=== PATIENT | female | born 1940 | race Caucasian/White ===

== ENCOUNTER → 2016-09-17 | Outpatient (REF) | payer MEDICARE ==
[~2016-09-17] MED LIST: ACET50TAOT PO; CALC500T19 PO; CORE6.25 PO; FERR325T PO; INSUDET SC; LISI10TA4 PO; LOVA20TA2 PO; METF1000 PO; PRED10TA PO; VITA10002 PO; VITMTA PO
[2016-09-17 11:10] LABS: PERCENT SATURATION 25.3 % (13.2-37.4)
[2016-09-17 11:11] LABS: REASON FOR REVIEW COMPREHENSIVE REVIEW
== END ==
LOC: M LAB REF 10:31
PROVIDERS: ATTEND Internal Medicine Medical Oncology
DX: D64.9 Anemia, unspecified (principal); D72.829 Elevated white blood cell count, unspecified

== ENCOUNTER → 2016-09-25 | Outpatient (REF) | payer MEDICARE | LOC: M LAB REF 13:15 | PROVIDERS: ATTEND Internal Medicine Medical Oncology | DX: D72.829 Elevated white blood cell count, unspecified (principal); D64.9 Anemia, unspecified; D47.3 Essential (hemorrhagic) thrombocythemia ==

== ENCOUNTER → 2016-12-10 | Outpatient (CLI) | payer MEDICARE ==
[~2016-12-10] MED LIST changes: +PRED5PAK PO
--- NOTE | 2016-12-10 15:56 | REPMRS ---
Patient History The patient states she has not had a clinical breast exam in over a year. Patient is postmenopausal. No known family history of cancer. Digital Woman Screen Mammo: December 10, 2016 - Exam #: [id number] Bilateral CC and MLO view(s) were taken. Technologist: Sandra Mcclain, Technologist Prior study comparison: December 08, 2015, digital woman screen mammo performed at [facility] to [facility]. November 29, 2014, digital woman screen mammo performed at [facility]. July 01, 2013, digital woman screen mammo performed at [facility] to [facility]. FINDINGS: There are scattered fibroglandular densities. There has been no change in the appearance of the mammogram from the prior studies. There is a mild amount of scattered fibroglandular density which is fairly symmetric. There is no interval development of dominant mass, architectural distortion, or clustered microcalcification suggestive of malignancy. ASSESSMENT: BI-RADS/ACR category 1 mammogram. Negative. Recommendation Routine screening mammogram in 1 year (for women over age 40). This mammogram was interpreted with the aid of an FDA-approved computer-aided dectection system. Electronically Signed By: Stef Morris MD 12/10/16 [id number]
== END ==
LOC: M WHC 12:39
PROVIDERS: ATTEND Family Medicine
DX: Z12.39 Encounter for other screening for malignant neoplasm of breast (principal)

== ENCOUNTER → 2016-12-14 | Outpatient (CLI) | payer MEDICARE ==
[~2016-12-14] VITALS: Ht 170.2 cm; Wt 67.1 kg
[~2016-12-14] MED LIST changes: +LIDOCAINE 2% INJ 100 MG/5 ML SDV (FOR ANES.) As Ordered ONE; +NS 1,000 ML IV SCH; +PROPOFOL 200 MG/20 ML VIAL As Ordered ONE
--- NOTE | 2016-12-14 09:23 | ROOR ---
Patient Name: Charlene Denise Procedure Date: 12/14/2016 9:00 AM Date of : 1940 Age: 76 Room: [facility] Gender: Female Note Status: Finalized Procedure: Colonoscopy Indications: High risk colon cancer surveillance: Personal history of colonic polyps, Last colonoscopy: May 2012 Providers: Steven BROOKS MD Referring MD: Candelario Franklin MD Requesting Provider: Medicines: Monitored Anesthesia Care Complications: No immediate complications. Procedure: Pre-Anesthesia Assessment: - The heart rate, respiratory rate, oxygen saturations, blood pressure, adequacy of pulmonary ventilation, and response to care were monitored throughout the procedure. The Colonoscope was introduced through the anus and advanced to the cecum, identified by appendiceal orifice and ileocecal valve. The colonoscopy was performed without difficulty. The patient tolerated the procedure well. The quality of the bowel preparation was good. Findings: The perianal and digital rectal examinations were normal. Four flat and sessile polyps were found in the sigmoid colon and ascending colon. The polyps were 4 to 6 mm in size. These polyps were removed with a piecemeal technique using a cold snare. Resection and retrieval were complete. A single medium-sized angioectasia without bleeding was found in the proximal ascending colon. Coagulation for tissue destruction using argon beam at 0.8 liters/minute and 20 rey was successful. A few medium-mouthed diverticula were found in the sigmoid colon. The exam was otherwise without abnormality on direct and retroflexion views. Impression: - Four 4 to 6 mm polyps in the sigmoid colon and in the ascending colon, removed piecemeal using a cold snare. Resected and retrieved. - A single non-bleeding colonic angioectasia. Treated with argon beam coagulation. - Mild diverticulosis in the sigmoid colon. - Internal hemorrhoids. - The examination was otherwise normal on direct and retroflexion views. Recommendation: - Repeat colonoscopy in 3 years for surveillance. Steven Brooks MD Steven BROOKS MD 12/14/2016 9:22:55 AM This report has been signed electronically. Number of Addenda: 0 Note Initiated On: 12/14/2016 9:00 AM Estimated Blood Loss: Estimated blood loss: none.
[2016-12-14 09:40] VITALS: BP 110/63
== END ==
LOC: M OPP 07:51
PROVIDERS: ATTEND Internal Medicine Gastroenterology
DX: Z12.11 Encounter for screening for malignant neoplasm of colon (principal); Z86.010 Personal history of colon polyps; D12.5 Benign neoplasm of sigmoid colon; D12.2 Benign neoplasm of ascending colon; K55.20 Angiodysplasia of colon without hemorrhage; K57.30 Diverticulosis of large intestine without perforation or abscess without bleeding; I10 Essential (primary) hypertension; E11.9 Type 2 diabetes mellitus without complications; E78.5 Hyperlipidemia, unspecified; D64.9 Anemia, unspecified; M35.3 Polymyalgia rheumatica; I49.9 Cardiac arrhythmia, unspecified; Z85.6 Personal history of leukemia; Z79.84 Long term (current) use of oral hypoglycemic drugs; Z79.899 Other long term (current) drug therapy; Z88.6 Allergy status to analgesic agent; Z88.0 Allergy status to penicillin

== ENCOUNTER → 2017-01-08 | Outpatient (REF) | payer MEDICARE ==
[~2017-01-08] MED LIST changes: -LIDOCAINE 2% INJ 100 MG/5 ML SDV (FOR ANES.) As Ordered ONE; -NS 1,000 ML IV SCH; -PROPOFOL 200 MG/20 ML VIAL As Ordered ONE
[2017-01-08 19:41] LABS: PERCENT SATURATION 33.8 % (13.2-37.4)
== END ==
LOC: M LAB REF 17:17
PROVIDERS: ATTEND Internal Medicine Medical Oncology
DX: C95.90 Leukemia, unspecified not having achieved remission (principal)

== ENCOUNTER → 2017-01-24 | Outpatient (REF) | payer MEDICARE | LOC: M LAB REF 16:19 | PROVIDERS: ATTEND Internal Medicine Medical Oncology | DX: D64.9 Anemia, unspecified (principal); D47.3 Essential (hemorrhagic) thrombocythemia; D72.829 Elevated white blood cell count, unspecified ==

== ENCOUNTER → 2017-02-14 | Outpatient (CLI) | payer MEDICARE ==
[~2017-02-14] MED LIST changes: +ACETAMINOPHEN TAB 650MG DOSE (2X325MG) As Ordered ONE; +ACETAMINOPHEN TAB 650MG DOSE (2X325MG) PO SCH; +diphenhydrAMINE 25 MG CAP As Ordered ONE; +diphenhydrAMINE 25 MG CAP PO SCH
== END | disposition home or self-care (01) ==
LOC: M INFU 11:38
PROVIDERS: ATTEND Internal Medicine Medical Oncology
DX: D64.9 Anemia, unspecified (principal); C91.Z0 Other lymphoid leukemia not having achieved remission; Z88.0 Allergy status to penicillin; Z88.8 Allergy status to other drugs, medicaments and biological substances; Z79.899 Other long term (current) drug therapy; Z79.4 Long term (current) use of insulin; Z79.84 Long term (current) use of oral hypoglycemic drugs; Z79.52 Long term (current) use of systemic steroids
CPT/HCPCS: 36430; 86850; 86920; P9016

== ENCOUNTER → 2017-04-05 | Outpatient (REF) | payer MEDICARE ==
[~2017-04-05] MED LIST changes: -ACETAMINOPHEN TAB 650MG DOSE (2X325MG) As Ordered ONE; -ACETAMINOPHEN TAB 650MG DOSE (2X325MG) PO SCH; +ATOR1TAB21 PO; +FERR1TAB8 PO; -FERR325T PO; -METF1000 PO; +METF10004 PO; +METH2.5TA PO; +PRED1TABL PO; +PRED5TA PO; +TYLE325T5 PO; -diphenhydrAMINE 25 MG CAP As Ordered ONE; -diphenhydrAMINE 25 MG CAP PO SCH
== END ==
LOC: M SFHCPLAZ 11:58
PROVIDERS: ATTEND Family Medicine
DX: D50.9 Iron deficiency anemia, unspecified (principal); E78.2 Mixed hyperlipidemia; M35.3 Polymyalgia rheumatica; E04.2 Nontoxic multinodular goiter; E11.9 Type 2 diabetes mellitus without complications; Z53.8 Procedure and treatment not carried out for other reasons

== ENCOUNTER → 2017-04-09 | Outpatient (CLI) | payer MEDICARE ==
--- NOTE | 2017-04-09 13:44 | REP ---
Thyroid ultrasound: Comparison is the most recent study dated see 2015. Right lobe: The right lobe is enlarged measuring 7.7 x 2.7 x 3.2 cm (previously 7.0 x 2.8 x 3.7 cm. There are three right lobe nodules as previously. There is a 0.6 cm cyst in the upper pole (previously 1.1 cm). There is a 0.7 cm nodule medially in the upper pole (previously 1.9 cm). There is a 3.8 cm nodule in the lower pole (previously 2.8 cm). Left lobe: The left lobe is enlarged measuring 5.7 x 1.9 by 1.8 cm (previous 6.0 x 1 point and 1.7 cm. There are three left lobe nodules as previously. There is an upper pole nodule measuring 1.4 cm (previously 1.1 cm). There is a lower pole nodule laterally measuring 1.0 cm (2.4 cm previously). There is a lower pole nodule medially measuring 0.80 cm (previously 1.9 cm). Isthmus: The isthmus is thickened measuring 3.8 mm (3.7 mm previously). There is a 0.3 cm cyst in the isthmus to the left of midline, not present previously. Signed by Yordan Pena MD 04/09/2017 01:37 P
== END ==
LOC: M RAD 11:58
PROVIDERS: ATTEND Family Medicine
DX: E04.2 Nontoxic multinodular goiter (principal)

== ENCOUNTER → 2017-04-09 | Outpatient (CLI) | payer MEDICARE ==
[2017-04-09 10:27] LABS: BASO % 0.4 % (0.0-1.0); EOS # 0.1 K/mm3 (0.0-0.50); EOS % 0.7 % (0.0-3.0); LARGE UNSTAINED CELL # 0.1 K/mm3 (0.0-0.4); LYMPH # 4.7 K/mm3 (1.5-4.5); LYMPH % 49.9 % (24.0-44.0); MEAN CORPUSCULAR HEMOGLOBIN 37.7 pg (27.0-33.0); MEAN CORPUSCULAR HGB CONC 33.9 g/dl (32.0-36.5); MONO # 0.6 K/mm3 (0.0-0.8); NEUTROPHILS # 3.9 K/mm3 (1.8-7.7); PLATELET COUNT, AUTOMATED 331 k/mm3 (150-450); RED CELL DISTRIBUTION WIDTH 18.8 % (11.5-14.5); WHITE BLOOD COUNT 9.3 K/mm3 (4.0-10.0)
[2017-04-09 10:32] LABS: BILIRUBIN,TOTAL 0.4 MG/DL (0.2-1.0); CALCIUM LEVEL 8.8 MG/DL (8.8-10.2); CREATININE FOR GFR 1.41 MG/DL (0.55-1.02); GLOMERULAR FILTRATION RATE 38.3 (>39)
[2017-04-09 10:33] LABS: ALBUMIN 3.4 GM/DL (3.2-5.2); ALBUMIN/GLOBULIN RATIO 1.36 (1.00-1.93); FREE T4 1.27 NG/DL (0.76-1.46); PERCENT SATURATION 30.9 % (13.2-45.0); TOTAL PROTEIN 5.9 GM/DL (6.4-8.2)
[2017-04-09 10:37] LABS: ADD MORPHOLOGY? YES
[2017-04-09 10:38] LABS: POTASSIUM SERUM 5.8 MEQ/L (3.5-5.1)
[2017-04-09 10:53] LABS: ERYTHROCYTE SEDIMENTATION RATE 65 mm/hr (0-30)
[2017-04-09 11:41] LABS: ANISOCYTOSIS 2+
== END ==
LOC: M WUC 08:10
PROVIDERS: ATTEND Family Medicine
DX: D50.9 Iron deficiency anemia, unspecified (principal); E78.2 Mixed hyperlipidemia; M35.3 Polymyalgia rheumatica; Z79.899 Other long term (current) drug therapy

== ENCOUNTER → 2017-04-22 | Outpatient (REF) | payer MEDICARE | LOC: M LAB REF 12:41 | PROVIDERS: ATTEND Internal Medicine Medical Oncology | DX: D64.9 Anemia, unspecified (principal) ==

== ENCOUNTER 2017-04-23 12:33 | Outpatient (CLI) | payer MEDICARE ==
[~2017-04-23] VITALS: Ht 170.2 cm; Wt 71.0 kg
[2017-04-23] VITALS (7 sets, daily range): BP systolic 105–133; BP diastolic 57–63
[~2017-04-23 12:33] MED LIST changes: +ACETAMINOPHEN TAB 650MG DOSE (2X325MG) PO SCH; -ATOR1TAB21 PO; -METH2.5TA PO; -PRED1TABL PO; -PRED5TA PO; -TYLE325T5 PO; +diphenhydrAMINE 25 MG CAP PO SCH
== END 2017-04-23 18:34 | disposition home or self-care (01) ==
LOC: M OPCLI4PR 12:33 → M PED 12:36 → M OPCLI4PR 18:34
PROVIDERS: ATTEND Internal Medicine Medical Oncology
DX: D64.9 Anemia, unspecified (principal); C91.Z0 Other lymphoid leukemia not having achieved remission; Z88.0 Allergy status to penicillin; Z88.8 Allergy status to other drugs, medicaments and biological substances
CPT/HCPCS: 36430; P9016

== ENCOUNTER 2017-05-21 12:18 | Outpatient (CLI) | payer MEDICARE ==
[~2017-05-21] VITALS: Ht 170.2 cm; Wt 66.3 kg
[~2017-05-21 12:18] MED LIST changes: -ATOR1TAB21 PO; -METH2.5TA PO; -PRED1TABL PO; -PRED5TA PO; -TYLE325T5 PO
[2017-05-21 12:50] VITALS: BP 91/44
[2017-05-21] MEDS ORDERED: ACETAMINOPHEN TAB 650MG DOSE (2X325MG) PO ONE (13:00)
[2017-05-21] MEDS ORDERED: diphenhydrAMINE 25 MG CAP PO ONE (13:00)
[2017-05-21] MEDS ORDERED: METH2.5TA PO (13:51)
== END 2017-05-21 17:55 | disposition home or self-care (01) ==
LOC: M OPCLI4PR 12:18 → M MS4PR 12:24 → M OPCLI4PR 17:55
PROVIDERS: ATTEND Internal Medicine Medical Oncology
DX: D64.9 Anemia, unspecified (principal); E78.9 Disorder of lipoprotein metabolism, unspecified
CPT/HCPCS: 86850; 86900; 86901; 86920; P9016

== ENCOUNTER → 2017-05-21 | Outpatient (REF) | payer MEDICARE ==
[~2017-05-21] MED LIST changes: -ACETAMINOPHEN TAB 650MG DOSE (2X325MG) PO SCH; +ATOR1TAB21 PO; +METH2.5TA PO; +PRED1TABL PO; +PRED5TA PO; +TYLE325T5 PO; -diphenhydrAMINE 25 MG CAP PO SCH
== END ==
LOC: M LAB REF 09:50
PROVIDERS: ATTEND Internal Medicine Medical Oncology
DX: D64.9 Anemia, unspecified (principal); E78.9 Disorder of lipoprotein metabolism, unspecified

== ENCOUNTER 2017-06-04 11:35 | Outpatient (CLI) | payer MEDICARE ==
[~2017-06-04] VITALS: Ht 170.2 cm; Wt 75.0 kg
[~2017-06-04 11:35] MED LIST changes: +ACETAMINOPHEN TAB 650MG DOSE (2X325MG) PO SCH; +METH2.5TA PO; +diphenhydrAMINE 25 MG CAP PO SCH
== END 2017-06-04 14:30 | disposition home or self-care (01) ==
LOC: M INFU 11:35
PROVIDERS: ATTEND Internal Medicine Medical Oncology
DX: D64.9 Anemia, unspecified (principal); C95.90 Leukemia, unspecified not having achieved remission; Z87.891 Personal history of nicotine dependence; Z88.8 Allergy status to other drugs, medicaments and biological substances; Z88.0 Allergy status to penicillin; Z79.52 Long term (current) use of systemic steroids; Z79.4 Long term (current) use of insulin; Z79.899 Other long term (current) drug therapy
CPT/HCPCS: 36430; 86850; 86900; 86901; 86920; P9016

== ENCOUNTER → 2017-06-19 | Outpatient (CLI) | payer MEDICARE ==
[~2017-06-19] MED LIST changes: +ATOR1TAB21 PO; +PRED1TABL PO; +PRED5TA PO; +TYLE325T5 PO
== END ==
LOC: M INFU 12:05
PROVIDERS: ATTEND Internal Medicine Medical Oncology
DX: D64.9 Anemia, unspecified (principal); C95.90 Leukemia, unspecified not having achieved remission; Z88.8 Allergy status to other drugs, medicaments and biological substances; Z88.0 Allergy status to penicillin; Z79.4 Long term (current) use of insulin; Z79.899 Other long term (current) drug therapy; Z79.52 Long term (current) use of systemic steroids; Z87.891 Personal history of nicotine dependence
CPT/HCPCS: 36430; 86850; 86900; 86901; 86920; P9016

== ENCOUNTER 2017-07-17 08:35 | Observation (INO) | payer MEDICARE ==
[~2017-07-17] VITALS: Ht 167.6 cm; Wt 69.6 kg
[2017-07-17] VITALS (8 sets, daily range): BP systolic 123–148; BP diastolic 58–67
[~2017-07-17 08:35] MED LIST changes: -ACETAMINOPHEN TAB 650MG DOSE (2X325MG) PO SCH; -ATOR1TAB21 PO; -PRED1TABL PO; -PRED5TA PO; -TYLE325T5 PO; -diphenhydrAMINE 25 MG CAP PO SCH
[2017-07-17] MEDS ORDERED: ALBUTEROL SULFATE 2.5 MG/0.5 ML INH NEB SOLN INH ONE (09:30)
[2017-07-17 09:36] LABS: BASO % 0.2 % (0.0-1.0); EOS # 0.5 10^3/uL (0.0-0.50); EOS % 3.6 % (0.0-3.0); IMMATURE GRANULOCYTE % 0.6 % (0-0); LYMPH # 4.2 10^3/uL (1.5-4.5); LYMPH % 33.1 % (24.0-44.0); MEAN CORPUSCULAR HEMOGLOBIN 32.7 pg (27.0-33.0); MEAN CORPUSCULAR HGB CONC 33.5 g/dl (32.0-36.5); MEAN CORPUSCULAR VOLUME 97.7 fl (80.0-96.0); MONO # 1.3 10^3/uL (0.0-0.8); MONO % 10.1 % (0.0-5.0); NEUTROPHILS # 6.7 10^3/uL (1.8-7.7); NEUTROPHILS % 52.4 % (36.0-66.0); PLATELET COUNT, AUTOMATED 321 10^3/uL (150-450); RED CELL DISTRIBUTION WIDTH 16.7 % (11.5-14.5); WHITE BLOOD COUNT 12.7 10^3/uL (4.0-10.0)
--- NOTE | 2017-07-17 10:07 | REP ---
PA and lateral chest: Comparison is 01/04/2016. The lung ny are clear. Cardiac size is normal. The alejo, mediastinum, and bony thorax are unremarkable except for an old healed right seventh rib fracture, not present previously. There is chronic grade 1 compression deformity of the T11 vertebral body, unchanged from the prior study. Impression: No acute cardiopulmonary findings. Signed by Yordan Pena MD 07/17/2017 09:58 A
[2017-07-17 10:19] LABS: BLOOD UREA NITROGEN 39 MG/DL (7-18); CALCIUM LEVEL 9.3 MG/DL (8.8-10.2); CARBON DIOXIDE LEVEL 25 MEQ/L (21-32); CHLORIDE LEVEL 106 MEQ/L (98-107); GLUCOSE, FASTING 113 MG/DL (83-110); POTASSIUM SERUM 4.8 MEQ/L (3.5-5.1)
[2017-07-17 10:25] LABS: ANION GAP 9 MEQ/L (8-16); SODIUM LEVEL 140 MEQ/L (136-145)
[2017-07-17] MEDS ORDERED: TYLE325T5 PO (10:42)
[2017-07-17] MEDS ORDERED: ATOR1TAB21 PO (10:42)
[2017-07-17] MEDS ORDERED: PRED1TABL PO (10:43)
[2017-07-17] MEDS ORDERED: PRED5TA PO (10:43)
[2017-07-17] MEDS ORDERED: DEXTROSE 50% 50 ML SYRINGE IV PRN (12:45)
[2017-07-17] MEDS ORDERED: ACETAMINOPHEN TAB 650MG DOSE (2X325MG) PO PRN (12:45)
[2017-07-17] MEDS ORDERED: GLUCOSE 4 GM CHEW TABLET PO PRN (12:45)
[2017-07-17] MEDS ORDERED: GLUCAGON FOR INJ 1 MG VIAL (J1610) SC PRN (12:45)
[2017-07-17] MEDS: HumaLOG INSULIN (NovoLOG) PER UNIT SC SCH (17:15)
[2017-07-17] MEDS ORDERED: SLF 3 ML SYR IV PRN (18:15)
[2017-07-17] MEDS: SLF 3 ML SYR IV SCH (20:44)
[2017-07-17] MEDS ORDERED: HumaLOG INSULIN (NovoLOG) PER UNIT SC SCH (21:00)
[2017-07-17] MEDS ORDERED: predniSONE 1 MG TAB PO SCH (21:00)
[2017-07-17] MEDS ORDERED: ATORVASTATIN 20 MG TAB PO SCH (21:00)
[2017-07-17] MEDS ORDERED: predniSONE 5 MG TAB PO SCH (21:00)
--- NOTE | 2017-07-18 02:40 | HPEPDOC ---
General Date of Admission Jul 17, 2017 at 12:42 Attending Physician: VEL BRYANT DO Chief Complaint The patient is a 77-year-old female admitted with a reason for visit of Symptomatic Anemia. Source: Patient, Family, Old records Exam Limitations: No limitations Timing/Duration: Week(s) Severity: Moderate History of Present Illness This is a 68 [address] patient of Dr. Garrett, who presents to the ED after she was found to be hypotensive in the oncology office. Reportedly, she had a pressure that was 80 systolic there, and was sent to the ED for further workup and evaluation. She has been receiving blood transfusions every several weeks since this summer. Her hemoglobin was just high enough at her [id number] scheduled transfusion that she was not transfused that day. She then stayed home from her next scheduled transfusion, as she felt too tired to face going. She has been feeling quite tired and run down for at least the last 2 weeks, worse in the last several mornings. Home Medications Scheduled Atorvastatin Calcium (Atorvastatin Calcium) 20 Mg Tab, 20 MG PO QPM, (Reported) Calcium/Vitamin D (Calcium 500/D 500-200 mg-Unit) 1 Tab Tab, 1 TAB PO DAILY, ( Reported) Carvedilol (Coreg) 6.25 Mg Tab, 6.25 MG PO BID, (Reported) Cyanocobalamin (Vitamin B-12) 1,000 Mcg Tab, 1,000 MCG PO 3XW, (Reported) SATURDAY, SATURDAY, SATURDAY Insulin Detemir (Levemir) 1 Units/0.01 Ml Susp, 20 UNITS SC QAM, (Reported) Insulin Detemir (Levemir) 1 Units/0.01 Ml Susp, 10 UNITS SC QPM, (Reported) Lisinopril (Lisinopril) 10 Mg Tab, 10 MG PO DAILY, (Reported) Metformin Hydrochloride (Metformin HCl) 1,000 Mg Tab, 1,000 MG PO BID, (Reported ) Methotrexate (Methotrexate) 2.5 Mg Tab, 15 MG PO 1XWK, (Reported) SATURDAY Multivitamins *[facility] STOCKED* (Thera M Plus *[facility] STOCKED*) 1 Tab Tab, 1 TAB PO DAILY, (Reported) Prednisone (Prednisone) 5 Mg Tab, 5 MG PO QPM, (Reported) TAKE WITH 1MG TAB- 6MG TOTAL Prednisone (Prednisone) 1 Mg Tab, 1 MG PO QPM, (Reported) TAKE WITH 5MG TAB- 6MG TOTAL Scheduled PRN Acetaminophen (Tylenol) 325 Mg Tab, 650 MG PO Q4H PRN for PAIN, (Reported) Allergies Coded Allergies: Aspirin (Unverified Allergy, Intermediate, HIVES, 12/07/16) Penicillins (Unverified Allergy, Intermediate, RASH, 12/07/16) Penicillins Cross Reactors (Unverified Allergy, Intermediate, RASH, ) Past Medical History Medical History T-cell Large Granulocytic Leukemia (T-LGL) Diabetes Mellitus type 2 anemia (deficiency of iron, B12, as well as CKD) hyperlipidemia psoriasis CKD stage 3 Surgical History bilateral tubal ligation MEG-BSO cataracts L inguinal hernia repair Social History * Smoker: non-smoker Alcohol: Denies Drugs: denies Psychosocial History: Other (cares for with dementia) Review of Symptoms Constitutional: Reports: Malaise, Weakness, Denies: Chills, Fever Eyes: Denies: Vision change ENT: Reports: Head Aches Skin: Denies: Rash, Lesions Pulmonary: Reports: Cough (dry), Denies: Dyspnea Cardiovascular: Reports: Chest Pain Gastrointestinal: Denies: Nausea, Vomiting, Diarrhea, Constipation Genitourinary: Denies: Dysuria Endocrine: Denies: Polydipsia, Polyphagia Physical Examination General Exam: Positive: Alert, Cooperative, No Acute Distress Eye Exam: Positive: PERRLA, Conjunctiva & lids normal, EOMI Neck Exam: Positive: Supple Vital Signs Vital Signs Date Time Temp Pulse Resp B/P (MAP) Pulse Ox O2 Delivery O2 Flow Rate FiO2 07/17/17 23:55 Room Air 07/17/17 23:19 97.7 91 18 125/61 (82) 95 Laboratory Data Labs 24H Laboratory Tests 2 07/17/17 09:11: Immature Granulocyte % (Auto) 0.6H, White Blood Count 12.7H, Red Blood Count 2.14L, Hemoglobin 7.0L, Hematocrit 20.9L, Mean Corpuscular Volume 97.7H, Mean Corpuscular Hemoglobin 32.7, Mean Corpuscular Hemoglobin Concent 33.5, Red Cell Distribution Width 16.7H, Platelet Count 321, Neutrophils (%) (Auto) 52.4, Lymphocytes (%) (Auto) 33.1, Monocytes (%) (Auto) 10.1H, Eosinophils (%) (Auto) 3.6H, Basophils (%) (Auto) 0.2, Neutrophils # (Auto) 6.7, Lymphocytes # (Auto) 4.2, Monocytes # (Auto) 1.3H, Eosinophils # (Auto) 0.5, Basophils # (Auto) 0.0, Immature Granulocyte # (Auto) 0.1H, Nucleated Red Blood Cells % (auto) 0.0, Anion Gap 9, Lactic Acid Level 2.1*H, Blood Urea Nitrogen 39H, Creatinine 1.50H , Sodium Level 140, Potassium Level 4.8, Chloride Level 106, Carbon Dioxide Level 25, Calcium Level 9.3, Total Creatine Kinase 57, Creatine Kinase MB 1.0, Creatine Kinase MB Relative Index 1.75, Troponin I < 0.02, AG-Hly-R-Type Natriuretic Peptide 391 07/17/17 13:11: Total Creatine Kinase 54, Creatine Kinase MB 1.1, Creatine Kinase MB Relative Index 2.03, Troponin I < 0.02 07/17/17 19:50: Lactic Acid Followup at 4 Hours 0.7 CBC/BMP Laboratory Tests 07/17/17 09:11 Red Blood Count 2.14 L, Mean Corpuscular Volume 97.7 H, Mean Corpuscular Hemoglobin 32.7, Mean Corpuscular Hemoglobin Concent 33.5, Red Cell Distribution Width 16.7 H, Neutrophils (%) (Auto) 52.4, Lymphocytes (%) (Auto) 33.1, Monocytes (%) (Auto) 10.1 H, Eosinophils (%) (Auto) 3.6 H, Basophils (%) ( Auto) 0.2, Neutrophils # (Auto) 6.7, Lymphocytes # (Auto) 4.2, Monocytes # (Auto ) 1.3 H, Eosinophils # (Auto) 0.5, Basophils # (Auto) 0.0, Calcium Level 9.3, Total Creatine Kinase 57 07/17/17 19:50 Microbiology Microbiology 07/17/17 Blood Culture, Received Pending 07/17/17 Blood Culture, Received Pending Assessment/Plan 1. Patient with symptomatic anemia. Will transfuse 3 units, and monitor response to blood products. Discussed not skipping scheduled transfusions because of fatigue and malaise. Recheck hemoglobin after transfusion. 2. Essential hypertension -- hypotensive now, without evidence of significant illness. Will hold antihypertensives, and evaluation after transfusion 3. DM type 2 -- she has been running hypoglycemic at home. Worsening appetite. Home medications held, and patient placed on sliding scale insulin. 4. T-LGL -- patient has been following up with Dr. Mora 5. PFS -- patient has been having more difficulty caring for her spouse at home. He has dementia. They receive no support. The last couple weeks she has been too tired too cook, and has a bad appetite anyway. PFS consulted. Plan / VTE VTE Prophylaxis Ordered?: Yes Plan Activity: Continue Current Therapy: Home Safety VEL Morocho DO Jul 18, 2017 02:40
[2017-07-18 04:00] VITALS: BP 123/60
[2017-07-18] MEDS: SLF 3 ML SYR IV SCH (05:08)
[2017-07-18 06:07] LABS: BASO % 0.5 % (0.0-1.0); EOS # 0.1 10^3/uL (0.0-0.50); IMMATURE GRANULOCYTE % 0.6 % (0-0); LYMPH # 3.7 10^3/uL (1.5-4.5); LYMPH % 42.2 % (24.0-44.0); MEAN CORPUSCULAR HEMOGLOBIN 31.6 pg (27.0-33.0); MEAN CORPUSCULAR HGB CONC 34.5 g/dl (32.0-36.5); MEAN CORPUSCULAR VOLUME 91.7 fl (80.0-96.0); MONO # 0.7 10^3/uL (0.0-0.8); MONO % 7.6 % (0.0-5.0); NEUTROPHILS # 4.2 10^3/uL (1.8-7.7); NEUTROPHILS % 48.1 % (36.0-66.0); PLATELET COUNT, AUTOMATED 270 10^3/uL (150-450); RED CELL DISTRIBUTION WIDTH 15.9 % (11.5-14.5); WHITE BLOOD COUNT 8.7 10^3/uL (4.0-10.0)
[2017-07-18 06:33] LABS: ALBUMIN 2.6 GM/DL (3.2-5.2); ALBUMIN/GLOBULIN RATIO 0.84 (1.00-1.93); BILIRUBIN,TOTAL 0.7 MG/DL (0.2-1.0); CALCIUM LEVEL 8.6 MG/DL (8.8-10.2); CREATININE FOR GFR 1.28 MG/DL (0.55-1.02); GLOMERULAR FILTRATION RATE 42.8 (>39); TOTAL PROTEIN 5.7 GM/DL (6.4-8.2)
[2017-07-18 06:49] LABS: POTASSIUM SERUM 5.2 MEQ/L (3.5-5.1)
--- NOTE | 2017-07-18 07:22 | ECGEPIP ---
Stationary ECG Study [facility] - ED Test Date: 2017-07-17 Pat Name: LELE SELF Department: Room: [place] [address] Gender: F Remedial [place]se[place]: LYNETTE : 1940 Requested By: Virgilio Fischer Order Number: [id number] Reading MD: Virgilio Hernadez Measurements Intervals [place] Rate: 94 P: 42 OK: 120 QRS: 42 QRSD: 88 T: 43 QT: 321 QTc: 401 Interpretive Statements SINUS RHYTHM NSTTW ABNORMALITIES SIMILAR TO 01/04/16 Electronically Signed On 07-18-2017 7:21:47 EST by Virgilio Hernadez
[2017-07-18 08:00] VITALS: BP 135/71
[2017-07-18] MEDS: HumaLOG INSULIN (NovoLOG) PER UNIT SC SCH ×2 (08:17→11:49)
[2017-07-18] MEDS ORDERED: MULTIVITAMINS/MINERALS THERAP 1 TAB PO SCH (09:00)
[2017-07-18 10:58] LABS: CALCIUM LEVEL 8.8 MG/DL (8.8-10.2); CREATININE FOR GFR 1.48 MG/DL (0.55-1.02); GLOMERULAR FILTRATION RATE 36.2 (>39); POTASSIUM SERUM 4.3 MEQ/L (3.5-5.1)
--- NOTE | 2017-07-19 05:20 | DSES ---
DATE OF ADMISSION: 07/17/2017 DATE OF DISCHARGE: 07/18/2017 ATTENDING PHYSICIAN: Dr. Vaishnavi Krueger. PRIMARY CARE PHYSICIAN: Dr. Candelario Franklin. HISTORY OF PRESENT ILLNESS: A 77-year-old patient presented to the emergency department (ED) after she was found to be hypotensive in the oncology office. She had a reported pressure of 80 systolic. The patient had been receiving blood transfusion every several weeks since this summer. However, the patient was not transfused the last two scheduled transfusions; one secondary to a stable level, the other secondary to patient not feeling well enough to attend the transfusion. Workup in the ED proved positive for symptomatic anemia. The patient was transfused with three units packed red cells. The patient was encouraged not to skip scheduled transfusion secondary to fatigue and malaise. Labs this morning show a hemoglobin of 9.1 with a hematocrit of 26.4. Chemistries show a potassium of 5.2 and that will be repeated prior to patient's discharge. The patient's blood pressure did normalize after transfusion. The patient feels well today and is anticipating going home. PHYSICAL EXAMINATION: VITAL SIGNS: Blood pressure is in the 120-130 range over 60s, heart rate is stable in the 90 range. HEENT: Neck is supple without lymphadenopathy or jugular venous distention (JVD). CARDIOVASCULAR: Heart rate and rhythm regular. PULMONARY: Lungs are clear. ABDOMEN: Soft and nontender. EXTREMITIES: Bilateral lower extremities without any edema. NEUROLOGIC: There is no resting tremor appreciated. The patient is alert and oriented times three. 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 SECONDARY DIAGNOSES: 1. Diabetes. 2. Hyperlipidemia. 3. Psoriasis. 4. Chronic kidney disease stage III. 5. Hypertension. PLAN: The patient will be discharged home. Diet is carbohydrate consistent. Activities as tolerated. She will followup with her primary care provider (PCP) on 07/23. She will followup with her oncologist on 07/24. She will have a complete blood count (CBC) completed on 07/22. Medications are as follows: - acetaminophen 325 mg tablet two by mouth every four hours as needed for pain - atorvastatin calcium 20 mg by mouth every evening - calcium and vitamin D one tablet by mouth daily - Coreg 6.25 mg by mouth twice a day - vitamin B12 1000 mcg by mouth three times per week - Levemir 20 units subcutaneous every morning and 10 units subcutaneous every evening - metformin 1000 mg by mouth twice a day - methotrexate 2.5 mg tablet (please clarify) by mouth weekly - multivitamin one tablet daily - prednisone 5 mg tablet by mouth every evening along with a 1 mg tablet by mouth every evening Stopped medications include lisinopril secondary to her hypotension. This can be reevaluated at her PCP's office next week during followup. The patient is discharged in stable and satisfactory condition with no further questions at time of discharge.
== END 2017-07-18 14:00 | disposition home or self-care (01) ==
LOC: M ED 08:35 → M ED INP 12:42 → M PCU 15:25
PROVIDERS: ADMIT Family Medicine; ATTEND Family Medicine
DX: D64.81 Anemia due to antineoplastic chemotherapy (principal); C91.Z0 Other lymphoid leukemia not having achieved remission; E11.22 Type 2 diabetes mellitus with diabetic chronic kidney disease; I12.9 Hypertensive chronic kidney disease with stage 1 through stage 4 chronic kidney disease, or unspecified chronic kidney disease; N18.3 Chronic kidney disease, stage 3 (moderate); E78.5 Hyperlipidemia, unspecified; L40.9 Psoriasis, unspecified; Z88.0 Allergy status to penicillin; Z88.6 Allergy status to analgesic agent; Z79.84 Long term (current) use of oral hypoglycemic drugs; Z79.899 Other long term (current) drug therapy
CPT/HCPCS: 36415; 36430; 71020; 80048; 80053; 82550; 82553; 83605; 83880; 84484; 85014; 85018; 85025; 86850; 86900; 86901; 86920; 87040; 93005; 93041; 94640; 94760; 97161; 99285; G0378; P9016

== ENCOUNTER → 2017-07-22 | Outpatient (CLI) | payer MEDICARE ==
[~2017-07-22] MED LIST changes: +ATOR1TAB21 PO; +PRED1TABL PO; +PRED5TA PO; +TYLE325T5 PO
[2017-07-22 16:50] LABS: MEAN CORPUSCULAR HEMOGLOBIN 31.1 pg (27.0-33.0); MEAN CORPUSCULAR HGB CONC 32.6 g/dl (32.0-36.5); MEAN CORPUSCULAR VOLUME 95.3 fl (80.0-96.0); PLATELET COUNT, AUTOMATED 321 10^3/uL (150-450); RED CELL DISTRIBUTION WIDTH 14.9 % (11.5-14.5); WHITE BLOOD COUNT 8.2 10^3/uL (4.0-10.0)
== END ==
LOC: M WUC 10:50
PROVIDERS: ATTEND Family Medicine
DX: D64.9 Anemia, unspecified (principal)

== ENCOUNTER → 2017-07-31 | Outpatient (REF) | payer MEDICARE ==
[2017-07-31 14:17] LABS: PERCENT SATURATION 48.9 % (13.2-45.0)
== END ==
LOC: M LAB REF 13:15
PROVIDERS: ATTEND Internal Medicine Medical Oncology
DX: D64.9 Anemia, unspecified (principal)

== ENCOUNTER → 2017-08-01 | Outpatient (REF) | payer MEDICARE | LOC: M LAB REF 12:06 | PROVIDERS: ATTEND Nurse Practitioner Family | DX: D64.9 Anemia, unspecified (principal); Z12.11 Encounter for screening for malignant neoplasm of colon ==

== ENCOUNTER → 2017-08-04 | Outpatient (CLI) | payer MEDICARE | LOC: M LAB 12:05 | PROVIDERS: ATTEND Nurse Practitioner Family | DX: D72.829 Elevated white blood cell count, unspecified (principal) ==

== ENCOUNTER → 2017-11-05 | Outpatient (REF) | payer MEDICARE ==
[2017-11-05 13:39] LABS: FERRITIN 515 NG/ML (8-252); IRON (FE) 119 UG/DL (50-170); PERCENT SATURATION 53.6 % (13.2-45.0); TOTAL IRON BINDING CAPACITY 222 UG/DL (250-450)
== END ==
LOC: M LAB REF 11:59
DX: D64.9 Anemia, unspecified (principal)
CPT/HCPCS: 83550

== ENCOUNTER → 2017-11-18 | Outpatient (CLI) | payer MEDICARE ==
[2017-11-18 09:40] LABS: ALBUMIN 3.6 GM/DL (3.2-5.2); ALBUMIN/GLOBULIN RATIO 1.33 (1.00-1.93); ALKALINE PHOSPHATASE 49 U/L (45-117); ALT/SGPT 24 U/L (12-78); ANION GAP 6 MEQ/L (8-16); AST/SGOT 13 U/L (7-37); BILIRUBIN,TOTAL 0.4 MG/DL (0.2-1.0); BLOOD UREA NITROGEN 36 MG/DL (7-18); C REACTIVE PROTEIN QUANTITATIV < 0.30 MG/DL (0.00-0.30); CALCIUM LEVEL 8.9 MG/DL (8.8-10.2); CARBON DIOXIDE LEVEL 26 MEQ/L (21-32); CHLORIDE LEVEL 108 MEQ/L (98-107); CHOLESTEROL LEVEL 129 MG/DL (<200); CHOLESTEROL RISK RATIO 2.263 (<5); CREATININE FOR GFR 1.22 MG/DL (0.55-1.30); GLOMERULAR FILTRATION RATE 45.3 (>39); GLUCOSE, FASTING 142 MG/DL (70-100); HDL CHOLESTEROL 57 MG/DL (>40); LDL CHOLESTEROL 41.6 MG/DL (<100); MAGNESIUM LEVEL 2.1 MG/DL (1.8-2.4); NON-HDL-C 72 MG/DL; POTASSIUM SERUM 4.8 MEQ/L (3.5-5.1); SODIUM LEVEL 140 MEQ/L (136-145); TOTAL PROTEIN 6.3 GM/DL (6.4-8.2); TRIGLYCERIDES LEVEL 152 MG/DL (<150)
[2017-11-18 09:56] LABS: ERYTHROCYTE SEDIMENTATION RATE 61 mm/hr (0-30)
[2017-11-18 10:39] LABS: TOTAL 25(OH) VITAMIN D 25.4 NG/ML (30.0-100.0)
[2017-11-18 11:13] LABS: ESTIMATED AVERAGE GLUCOSE 200 MG/DL (60-110); HEMOGLOBIN A1c 8.6 %
== END ==
LOC: M WUC 08:02
DX: E55.9 Vitamin D deficiency, unspecified (principal); E11.9 Type 2 diabetes mellitus without complications
CPT/HCPCS: 83735

== ENCOUNTER 2017-12-03 07:05 | Emergency (ER) | payer MEDICARE ==
[2017-12-03] MEDS: MECLIZINE 25 MG TABLET PO (07:49)
[2017-12-03] MEDS: NS 500 ML IV (07:49)
[2017-12-03 08:02] LABS: HEMATOCRIT 26.7 % (36.0-47.0); HEMOGLOBIN 8.9 g/dl (12.0-16.0); MEAN CORPUSCULAR HEMOGLOBIN 38.7 pg (27.0-33.0); MEAN CORPUSCULAR HGB CONC 33.3 g/dl (32.0-36.5); PLATELET COUNT, AUTOMATED 350 10^3/uL (150-450); RED CELL DISTRIBUTION WIDTH 13.4 % (11.5-14.5)
[2017-12-03 08:09] LABS: MEAN CORPUSCULAR VOLUME 116.1 fl (80.0-96.0); POSITIVE DIFF POS FLAG; POSITIVE MORPH POS FLAG; WHITE BLOOD COUNT 13.2 10^3/uL (4.0-10.0)
[2017-12-03 08:10] LABS: ADD MANUAL DIFFER YES; ALBUMIN 3.6 GM/DL (3.2-5.2); ALBUMIN/GLOBULIN RATIO 1.16 (1.00-1.93); ALKALINE PHOSPHATASE 49 U/L (45-117); ALT/SGPT 23 U/L (12-78); ANION GAP 7 MEQ/L (8-16); AST/SGOT 13 U/L (7-37); BILIRUBIN,DIRECT 0.1 MG/DL (0.0-0.2); BILIRUBIN,TOTAL 0.5 MG/DL (0.2-1.0); BLOOD UREA NITROGEN 30 MG/DL (7-18); CARBON DIOXIDE LEVEL 25 MEQ/L (21-32); CHLORIDE LEVEL 107 MEQ/L (98-107); CPK CREATINE PHOSPHOKINASE 42 U/L (26-192); CREATININE FOR GFR 1.29 MG/DL (0.55-1.30); DIFF SLIDE NUMBER 117; GLOMERULAR FILTRATION RATE 42.4 (>39); GLUCOSE, FASTING 138 MG/DL (70-100); POTASSIUM SERUM 4.9 MEQ/L (3.5-5.1); SODIUM LEVEL 139 MEQ/L (136-145); TOTAL PROTEIN 6.7 GM/DL (6.4-8.2); TROPONIN I < 0.02 NG/ML (< 0.10)
[2017-12-03 08:15] LABS: CK-MB VALUE MASS 1.3 NG/ML (<3.6); MB/CK RELATIVE INDEX 3.09 (< OR =4)
[2017-12-03 08:38] LABS: ATYPICAL LYMPH 10 % (0-5); EOSINOPHILS 2 % (0-5); LYMPHOCYTES 43 % (16-52); MONOCYTES 8 % (0-8); NEUTROPHILS 37 % (35-75); PLATELET ESTIMATE NORMAL (NORMAL)
[2017-12-03 10:07] LABS: KETONE, URINE AUTO RFX NEGATIVE (NEGATIVE); NITRITE, URINE AUTO RFX NEGATIVE (NEGATIVE); RBC, URINE AUTO RFX 1 /HPF (0-3); SQUAM EPITHELIAL CELL UR AURFX 0 /HPF (0-6); WBC, URINE AUTO RFX 3 /HPF (0-3)
[2017-12-03 10:22] LABS: LEUKOCYTE ESTERASE UR AUTO RFX 1+ (NEGATIVE)
[2017-12-03 13:34] LABS: BEDSIDE GLUCOSE 122 MG/DL (83-110)
== END 2017-12-03 13:26 | disposition home or self-care (01) ==
LOC: M ED 07:05
DX: R42 Dizziness and giddiness (principal); E11.9 Type 2 diabetes mellitus without complications; I11.9 Hypertensive heart disease without heart failure; F33.9 Major depressive disorder, recurrent, unspecified; Z79.52 Long term (current) use of systemic steroids; Z79.899 Other long term (current) drug therapy; Z79.4 Long term (current) use of insulin; Z88.8 Allergy status to other drugs, medicaments and biological substances; Z87.19 Personal history of other diseases of the digestive system; Z87.891 Personal history of nicotine dependence; Z85.6 Personal history of leukemia
CPT/HCPCS: 70551

== ENCOUNTER → 2017-12-07 | Outpatient (CLI) | payer MEDICARE ==
[2017-12-07 17:03] LABS: HEMOGLOBIN 8.4 g/dl (12.0-15.5); MEAN CORPUSCULAR HEMOGLOBIN 38.7 pg (27.0-33.0); MEAN CORPUSCULAR HGB CONC 32.3 g/dl (32.0-36.5); PLATELET COUNT, AUTOMATED 370 10^3/uL (150-450); RED BLOOD COUNT 2.17 10^6/uL (4.00-5.40); RED CELL DISTRIBUTION WIDTH 13.8 % (11.5-14.5); RETIC HEMOGLOBIN EQUIVALENT 43.1 pg (24-36); RETICULOCYTE # 37.3 10^9/L (17-77); RETICULOCYTE % 1.7 % (0.5-1.5)
[2017-12-07 17:12] LABS: ADD MANUAL DIFFER YES; DIFF SLIDE NUMBER 132; MEAN CORPUSCULAR VOLUME 119.8 fl (80.0-96.0); POSITIVE DIFF POS FLAG; POSITIVE MORPH POS FLAG
[2017-12-07 17:29] LABS: ANISOCYTOSIS 2+; EOSINOPHILS 1 % (0-5); LYMPHOCYTES 66 % (16-52); NEUTROPHILS 33 % (35-75); PLATELET ESTIMATE NORMAL (NORMAL)
[2017-12-09 09:19] LABS: VITAMIN B12 LEVEL 416 PG/ML (247-911)
[2017-12-10 12:16] LABS: PRETREATED FOLATE FOR RBCFOL 13.9 NG/ML; RBC FOLATE 1122.7 NG/ML (280-791)
== END ==
LOC: M WUC 13:42
DX: Z12.39 Encounter for other screening for malignant neoplasm of breast (principal); C91.Z0 Other lymphoid leukemia not having achieved remission
CPT/HCPCS: 82607

== ENCOUNTER → 2017-12-12 | Outpatient (CLI) | payer MEDICARE | LOC: M WHC 10:46 | DX: Z12.31 Encounter for screening mammogram for malignant neoplasm of breast (principal) | CPT/HCPCS: 77067 ==

== ENCOUNTER 2018-01-02 09:31 | Outpatient (CLI) | payer MEDICARE ==
[2018-01-02 11:01] LABS: IMMEDIATE SPIN CROSSMATCH 1 2
[2018-01-02] MEDS: diphenhydrAMINE 25 MG CAP PO (11:01)
[2018-01-02] MEDS: ACETAMINOPHEN TAB 650MG DOSE (2X325MG) PO (11:01)
== END 2018-01-02 16:29 | disposition home or self-care (01) ==
LOC: M OPCLIPCU 09:31 → M PCU 09:35 → M OPCLIPCU 16:29
PROVIDERS: Emergency Medicine Pediatric Emergency Medicine
DX: D64.9 Anemia, unspecified (principal); C91.Z0 Other lymphoid leukemia not having achieved remission; Z88.8 Allergy status to other drugs, medicaments and biological substances; Z88.0 Allergy status to penicillin; Z79.4 Long term (current) use of insulin; Z79.899 Other long term (current) drug therapy
CPT/HCPCS: 36430

== ENCOUNTER → 2018-01-23 | Outpatient (REF) | payer MEDICARE ==
[2018-01-24 12:38] LABS: IMMEDIATE SPIN CROSSMATCH 1 2
== END ==
LOC: M LAB REF 13:08
DX: D64.9 Anemia, unspecified (principal)
CPT/HCPCS: 86900

== ENCOUNTER 2018-01-24 12:11 | Outpatient (CLI) | payer MEDICARE | END 2018-01-24 17:00 | disposition home or self-care (01) | LOC: M INFU 12:11 | DX: D64.9 Anemia, unspecified (principal); I10 Essential (primary) hypertension; E78.00 Pure hypercholesterolemia, unspecified; N18.3 Chronic kidney disease, stage 3 (moderate); E11.9 Type 2 diabetes mellitus without complications; Z79.899 Other long term (current) drug therapy; Z88.8 Allergy status to other drugs, medicaments and biological substances | CPT/HCPCS: 36430 ==

== ENCOUNTER → 2018-02-13 | Outpatient (REF) | payer MEDICARE ==
[2018-02-13 13:51] LABS: AMORPHOUS SEDIMENT SMALL (NEGATIVE); APPEARANCE, URINE HAZY (CLEAR); BACTERIA, URINE AUTO 1+ (NEGATIVE); BILIRUBIN, URINE AUTO NEGATIVE (NEGATIVE); BLOOD, URINE BLOOD 1+ (NEGATIVE); COLOR, URINE YELLOW (YELLOW); GLUCOSE, URINE (UA) AUTO NEGATIVE (NEGATIVE); KETONE, URINE AUTO NEGATIVE (NEGATIVE); LEUKOCYTE ESTERASE, URINE AUTO 3+ (NEGATIVE); NITRITE, URINE AUTO NEGATIVE (NEGATIVE); PROTEIN, URINE AUTO NEGATIVE (NEGATIVE); RBC, URINE AUTO 0 /HPF (0-3); SQUAMOUS EPITHELIAL CELL UR AU 0 /HPF (0-6); TRANSITIONAL EPITHELIAL AUTO 1 /HPF; WBC, URINE AUTO 56 /HPF (0-3)
[2018-02-13 14:07] LABS: FERRITIN 879 NG/ML (8-252); IRON (FE) 224 UG/DL (50-170); PERCENT SATURATION 95.3 % (13.2-45.0); TOTAL IRON BINDING CAPACITY 235 UG/DL (250-450)
== END ==
LOC: M LAB REF 13:28
DX: D47.3 Essential (hemorrhagic) thrombocythemia (principal); D72.829 Elevated white blood cell count, unspecified
CPT/HCPCS: 83550

== ENCOUNTER → 2018-02-27 | Outpatient (REF) | payer MEDICARE ==
[2018-02-27 14:26] LABS: APPEARANCE, URINE HAZY (CLEAR); BACTERIA, URINE AUTO NEGATIVE (NEGATIVE); BILIRUBIN, URINE AUTO NEGATIVE (NEGATIVE); BLOOD, URINE BLOOD NEGATIVE (NEGATIVE); COLOR, URINE YELLOW (YELLOW); GLUCOSE, URINE (UA) AUTO NEGATIVE (NEGATIVE); KETONE, URINE AUTO NEGATIVE (NEGATIVE); LEUKOCYTE ESTERASE, URINE AUTO NEGATIVE (NEGATIVE); NITRITE, URINE AUTO NEGATIVE (NEGATIVE); PROTEIN, URINE AUTO NEGATIVE (NEGATIVE); RBC, URINE AUTO 1 /HPF (0-3); SPECIFIC GRAVITY URINE AUTO 1.011 (1.002-1.035); SQUAMOUS EPITHELIAL CELL UR AU 0 /HPF (0-6); UROBILINOGEN, URINE AUTO 0.2 mg/dL (0.0-2.0); WBC, URINE AUTO 1 /HPF (0-3)
[2018-02-27 14:42] LABS: FERRITIN 743 NG/ML (8-252); IRON (FE) 119 UG/DL (50-170); PERCENT SATURATION 55.6 % (13.2-45.0); TOTAL IRON BINDING CAPACITY 214 UG/DL (250-450)
== END ==
LOC: M LAB REF 13:29
DX: D72.829 Elevated white blood cell count, unspecified (principal); D47.3 Essential (hemorrhagic) thrombocythemia
CPT/HCPCS: 83550

== ENCOUNTER 2018-03-11 12:18 | Outpatient (CLI) | payer MEDICARE ==
[2018-03-11] MEDS: ACETAMINOPHEN TAB 650MG DOSE (2X325MG) PO (13:52)
[2018-03-11] MEDS: diphenhydrAMINE 25 MG CAP PO (13:52)
[2018-03-11 16:12] LABS: IMMEDIATE SPIN CROSSMATCH 1 2
== END 2018-03-11 18:08 | disposition home or self-care (01) ==
LOC: M OPCLI4PV 12:18 → M MSPAV 12:28 → M OPCLI4PV 18:08
DX: D64.9 Anemia, unspecified (principal); Z79.899 Other long term (current) drug therapy; Z79.52 Long term (current) use of systemic steroids; Z79.4 Long term (current) use of insulin; Z88.0 Allergy status to penicillin; Z88.8 Allergy status to other drugs, medicaments and biological substances
CPT/HCPCS: 36430

== ENCOUNTER → 2018-03-24 | Outpatient (CLI) | payer MEDICARE | LOC: M RAD 13:27 | DX: M79.661 Pain in right lower leg (principal); M71.21 Synovial cyst of popliteal space [Baker], right knee | CPT/HCPCS: 93971 ==

== ENCOUNTER 2018-04-17 11:42 | Observation (INO) | payer MEDICARE ==
[2018-04-17 13:16] LABS: MEAN CORPUSCULAR HEMOGLOBIN 35.8 pg (27.0-33.0); MEAN CORPUSCULAR HGB CONC 34.4 g/dl (32.0-36.5); PLATELET COUNT, AUTOMATED 320 10^3/uL (150-450); RED BLOOD COUNT 1.73 10^6/uL (4.00-5.40); RED CELL DISTRIBUTION WIDTH 22.5 % (11.5-14.5)
[2018-04-17 13:21] LABS: HEMOGLOBIN 6.2 g/dl (12.0-15.5)
[2018-04-17 13:22] LABS: INR 1.04; PROTHROMBIN TIME 13.7 SECONDS (12.1-14.4)
[2018-04-17 13:23] LABS: PARTIAL THROMBOPLASTIN TIME 29.4 SECONDS (25.4-37.6)
[2018-04-17 13:36] LABS: ANION GAP 9 MEQ/L (8-16); BLOOD UREA NITROGEN 34 MG/DL (7-18); CALCIUM LEVEL 8.8 MG/DL (8.8-10.2); CARBON DIOXIDE LEVEL 24 MEQ/L (21-32); CHLORIDE LEVEL 106 MEQ/L (98-107); CREATININE FOR GFR 1.43 MG/DL (0.55-1.30); GLOMERULAR FILTRATION RATE 37.6 (>32); GLUCOSE, FASTING 168 MG/DL (70-100); POTASSIUM SERUM 4.5 MEQ/L (3.5-5.1); SODIUM LEVEL 139 MEQ/L (136-145)
[2018-04-17] MEDS ORDERED: ACETAMINOPHEN 325 MG TAB PO ×2 (14:15)
[2018-04-17] MEDS: diphenhydrAMINE 25 MG CAP PO ×2 (14:44)
[2018-04-17] MEDS: ACETAMINOPHEN TAB 650MG DOSE (2X325MG) PO ×2 (14:44)
[2018-04-17 16:35] LABS: BEDSIDE GLUCOSE 154 MG/DL (83-110)
[2018-04-17] MEDS: HumaLOG INSULIN (NovoLOG) PER UNIT SC ×2 (17:30)
[2018-04-17 17:51] LABS: IMMEDIATE SPIN CROSSMATCH 1 2
[2018-04-17] MEDS ORDERED: HumaLOG INSULIN (NovoLOG) PER UNIT SC ×2 (21:00)
[2018-04-17] MEDS ORDERED: CARVedilol 6.25 MG TAB PO ×2 (21:00)
[2018-04-17] MEDS ORDERED: metFORMIN (GLUCOPHAGE) 1000 MG TABLET PO ×2 (21:00)
[2018-04-17] MEDS ORDERED: ATORVASTATIN 20 MG TAB PO ×2 (21:00)
[2018-04-17] MEDS ORDERED: LEVEMIR (INSULIN DETEMIR) 1 UNITS/0.01ML SC ×2 (21:00)
[2018-04-18] MEDS ORDERED: LEVEMIR (INSULIN DETEMIR) 1 UNITS/0.01ML SC ×2 (09:00)
[2018-04-18] MEDS ORDERED: predniSONE 5 MG TAB PO ×2 (09:00)
[2018-04-18] MEDS ORDERED: LISINOPRIL 10 MG TAB PO ×2 (09:00)
[2018-04-18] MEDS ORDERED: predniSONE 1 MG TAB PO ×2 (09:00)
[2018-04-18] MEDS ORDERED: CYANOCOBALAMIN 500 MCG TAB PO ×2 (09:00)
[2018-04-18] MEDS ORDERED: MULTIVITAMINS/MINERALS THERAP 1 TAB PO ×2 (09:00)
== END 2018-04-17 20:32 | disposition home or self-care (01) ==
LOC: M ED 11:42 → M ED INP 13:46 → M MSPAV 15:51
DX: D64.9 Anemia, unspecified (principal); E11.9 Type 2 diabetes mellitus without complications; E78.4 Other hyperlipidemia; L40.8 Other psoriasis; N18.3 Chronic kidney disease, stage 3 (moderate); I12.9 Hypertensive chronic kidney disease with stage 1 through stage 4 chronic kidney disease, or unspecified chronic kidney disease; C95.00 Acute leukemia of unspecified cell type not having achieved remission; Z79.899 Other long term (current) drug therapy; Z79.52 Long term (current) use of systemic steroids; Z88.0 Allergy status to penicillin
CPT/HCPCS: 93005

== ENCOUNTER → 2018-04-17 | Outpatient (REF) | payer MEDICARE | LOC: M LAB REF 11:32 | DX: D64.9 Anemia, unspecified (principal); Z53.9 Procedure and treatment not carried out, unspecified reason ==

== ENCOUNTER → 2018-05-01 | Outpatient (REF) | payer MEDICARE ==
[2018-05-02 12:05] LABS: IMMEDIATE SPIN CROSSMATCH 1 2
== END ==
LOC: M LAB REF 16:40
DX: D64.9 Anemia, unspecified (principal)
CPT/HCPCS: 86900

== ENCOUNTER 2018-05-02 11:38 | Outpatient (CLI) | payer MEDICARE ==
[2018-05-02] MEDS: diphenhydrAMINE 25 MG CAP PO ×2 (12:15)
[2018-05-02] MEDS: ACETAMINOPHEN TAB 650MG DOSE (2X325MG) PO ×2 (12:15)
== END 2018-05-02 16:15 | disposition home or self-care (01) ==
LOC: M INFU 11:38
DX: D64.9 Anemia, unspecified (principal); R00.8 Other abnormalities of heart beat; E78.5 Hyperlipidemia, unspecified; I12.9 Hypertensive chronic kidney disease with stage 1 through stage 4 chronic kidney disease, or unspecified chronic kidney disease; N18.3 Chronic kidney disease, stage 3 (moderate); H25.9 Unspecified age-related cataract; E11.9 Type 2 diabetes mellitus without complications; M06.9 Rheumatoid arthritis, unspecified; C95.90 Leukemia, unspecified not having achieved remission; F41.9 Anxiety disorder, unspecified; F32.9 Major depressive disorder, single episode, unspecified; Z79.899 Other long term (current) drug therapy; Z79.52 Long term (current) use of systemic steroids; Z79.4 Long term (current) use of insulin
CPT/HCPCS: 36430

== ENCOUNTER 2018-05-20 09:29 | Outpatient (CLI) | payer MEDICARE ==
[2018-05-20] MEDS: diphenhydrAMINE 25 MG CAP PO (10:27)
[2018-05-20] MEDS: ACETAMINOPHEN TAB 650MG DOSE (2X325MG) PO (10:27)
[2018-05-20 13:29] LABS: IMMEDIATE SPIN CROSSMATCH 1 2
== END 2018-05-20 15:20 | disposition home or self-care (01) ==
LOC: M INFU 09:29
DX: D59.1 Other autoimmune hemolytic anemias (principal); C91.Z0 Other lymphoid leukemia not having achieved remission; M06.9 Rheumatoid arthritis, unspecified; E78.00 Pure hypercholesterolemia, unspecified; E78.5 Hyperlipidemia, unspecified; I10 Essential (primary) hypertension; E11.9 Type 2 diabetes mellitus without complications; Z79.899 Other long term (current) drug therapy; Z88.0 Allergy status to penicillin; Z90.710 Acquired absence of both cervix and uterus
CPT/HCPCS: 36430

== ENCOUNTER 2018-06-12 12:45 | Outpatient (CLI) | payer MEDICARE ==
[~2018-06-12 12:45] MED LIST changes: -ACET50TAOT PO; +ACETAMINOPHEN TAB 650MG DOSE (2X325MG) PO; -ATOR1TAB21 PO; -CALC500T19 PO; -CORE6.25 PO; -FERR1TAB8 PO; -INSUDET SC; -LISI10TA4 PO; -LOVA20TA2 PO; -METF10004 PO; -METH2.5TA PO; -PRED10TA PO; -PRED1TABL PO; -PRED5PAK PO; -PRED5TA PO; -TYLE325T5 PO; -VITA10002 PO; -VITMTA PO; +diphenhydrAMINE 25 MG CAP PO
== END 2018-06-12 19:22 ==
LOC: M OPCLI5PR 12:45
DX: N18.9 Chronic kidney disease, unspecified (principal); D63.1 Anemia in chronic kidney disease
CPT/HCPCS: 36430

== ENCOUNTER 2018-06-18 08:14 | Outpatient (CLI) | payer MEDICARE ==
[2018-06-18] MEDS: diphenhydrAMINE 25 MG CAP PO (08:45)
[2018-06-18] MEDS: ACETAMINOPHEN TAB 650MG DOSE (2X325MG) PO (08:45)
== END 2018-06-18 13:25 | disposition home or self-care (01) ==
LOC: M INFU 08:14
DX: D64.9 Anemia, unspecified (principal); Z88.8 Allergy status to other drugs, medicaments and biological substances; Z88.0 Allergy status to penicillin
CPT/HCPCS: 36430

== ENCOUNTER 2018-07-16 10:11 | Outpatient (CLI) | payer MEDICARE ==
[2018-07-16] MEDS: ACETAMINOPHEN TAB 650MG DOSE (2X325MG) PO (11:25)
[2018-07-16] MEDS: diphenhydrAMINE 25 MG CAP PO (11:25)
== END 2018-07-16 15:35 | disposition home or self-care (01) ==
LOC: M INFU 10:11
DX: N18.9 Chronic kidney disease, unspecified (principal); C91.Z0 Other lymphoid leukemia not having achieved remission; D63.1 Anemia in chronic kidney disease; Z79.899 Other long term (current) drug therapy; Z88.0 Allergy status to penicillin; Z88.8 Allergy status to other drugs, medicaments and biological substances
CPT/HCPCS: 36430

== ENCOUNTER 2018-08-12 12:51 | Outpatient (CLI) | payer MEDICARE ==
[2018-08-12] MEDS: ACETAMINOPHEN TAB 650MG DOSE (2X325MG) PO (13:47)
[2018-08-12] MEDS: diphenhydrAMINE 25 MG CAP PO (13:47)
== END 2018-08-12 18:00 | disposition home or self-care (01) ==
LOC: M INFU 12:51
DX: D64.9 Anemia, unspecified (principal); C91.Z0 Other lymphoid leukemia not having achieved remission; Z88.8 Allergy status to other drugs, medicaments and biological substances; Z88.0 Allergy status to penicillin
CPT/HCPCS: 36430

== ENCOUNTER 2018-10-07 12:33 | Outpatient (CLI) | payer MEDICARE ==
[2018-10-07] VITALS (8 sets, daily range): BP systolic 105–150; BP diastolic 53–68
[~2018-10-07] VITALS: Ht 167.6 cm; Wt 68.1 kg
[~2018-10-07 12:33] MED LIST changes: +ACET500T15 PO; -ACETAMINOPHEN TAB 650MG DOSE (2X325MG) PO; +ACETAMINOPHEN TAB 650MG DOSE (2X325MG) PO SCH; +ATOR1TAB21 PO; +CALC500T19 PO; +CEPH500C PO; +CORE6.25 PO; +FERR1TAB8 PO; +INSUDET SC; +LISI10TA4 PO; +LOVA20TA2 PO; +METF10004 PO; +METH2.5T48 PO; +PRED10TA PO; +PRED1TABL PO; +PRED5PAK PO; +PRED5TA PO; +TYLE325T5 PO; +VITA10002 PO; +VITMTA PO; -diphenhydrAMINE 25 MG CAP PO; +diphenhydrAMINE 25 MG CAP PO SCH
== END 2018-10-07 18:05 | disposition home or self-care (01) ==
LOC: M INFU 12:33
PROVIDERS: ATTEND Internal Medicine Medical Oncology
DX: D64.9 Anemia, unspecified (principal)
CPT/HCPCS: 36415; 36430; 85027; 86850; 86900; 86901; 86920; G0463; P9016

== ENCOUNTER 2018-11-17 11:03 | Outpatient (CLI) | payer MEDICARE ==
[~2018-11-17] VITALS: Ht 165.1 cm; Wt 68.1 kg
[2018-11-17] VITALS (7 sets, daily range): BP systolic 95–157; BP diastolic 47–63
[~2018-11-17 11:03] MED LIST changes: -ACETAMINOPHEN TAB 650MG DOSE (2X325MG) PO SCH; -diphenhydrAMINE 25 MG CAP PO SCH
[2018-11-17] MEDS ORDERED: ACETAMINOPHEN TAB 650MG DOSE (2X325MG) PO ONE (12:30)
== END 2018-11-17 17:15 | disposition home or self-care (01) ==
LOC: M INFU 11:03
PROVIDERS: ATTEND Internal Medicine Hematology & Oncology
DX: C91.Z0 Other lymphoid leukemia not having achieved remission (principal); D64.9 Anemia, unspecified; Z88.8 Allergy status to other drugs, medicaments and biological substances; Z88.0 Allergy status to penicillin
CPT/HCPCS: 36430; P9016

== ENCOUNTER → 2019-01-08 | Outpatient (CLI) | payer MEDICARE ==
[~2019-01-08] MED LIST changes: +ALLO100T PO; +FERR500T PO; +FOLI1TAB11 PO; +PRED-351 PO; -PRED10TA PO
== END ==
LOC: M PLARAD 09:13
PROVIDERS: ATTEND Internal Medicine Hematology & Oncology
DX: Z53.9 Procedure and treatment not carried out, unspecified reason (principal); C94.80 Other specified leukemias not having achieved remission

== ENCOUNTER → 2019-01-21 | Outpatient (CLI) | payer MEDICARE ==
--- NOTE | 2019-01-21 15:06 | REP ---
PET/CT: History: Large granular lymphocytic leukemia. The patient on methotrexate. Elevated CEA level. Comparisons: No comparison PET-CT. TECHNIQUE: 1 hour 48 minutes following the intravenous injection of a 9.93 mCi dose of F-18 FDG, three-dimensional PET scintigraphy is acquired from the skull base to the proximal thighs. Triplanar noncontrast CT scanning is acquired through the same anatomic range for attenuation correction, and image registration with scan parameters optimized to minimize radiation exposure to the patient. PET scintigraphy and CT datasets were fused and displayed on a workstation with multiplanar and projection display capability. Please note that the patient apparently became symptomatically hypoglycemic 40 minutes after the radiotracer injection and the ensuing evaluation resulted in mild delay in image acquisition. PET/CT Findings: There is no abnormal hypermetabolic uptake in the head and neck soft tissues. No abnormal intrathoracic hypermetabolic uptake is seen. There is a 2.6 cm right thyroid nodule but this does not show hypermetabolic uptake. No pulmonary parenchymal hypermetabolic uptake is seen. In the abdomen and pelvis, normal hepatic, splenic and gastrointestinal FDG accumulation is seen. No abnormal hypermetabolic uptake is appreciated. There is an area of linear scarring in the subcutaneous fat of the left lower quadrant anterior abdominal wall. This has maximum standard uptake value of 3.5. This is consistent with postoperative change. This should be correlated clinically. The uterus is surgically absent. Impression: Linear area of mildly increased uptake in a fibrotic appearing area in the subcutaneous fat of the left lower quadrant anterior abdominal wall. This is consistent with postoperative change. It should be correlated clinically. Otherwise negative PET scintigraphy. Electronically Signed by Roshan Morris MD 01/21/2019 04:37 P
== END ==
LOC: M PLARAD 08:21
PROVIDERS: ATTEND Internal Medicine Hematology & Oncology
DX: C94.80 Other specified leukemias not having achieved remission (principal)
CPT/HCPCS: 78815; A9552

== ENCOUNTER 2019-02-05 10:17 | Emergency (ER) | payer MEDICARE ==
[~2019-02-05] VITALS: Ht 167.6 cm; Wt 67.0 kg
[2019-02-05 11:15] LABS: PROTHROMBIN TIME 13.3 SECONDS (12.1-14.4)
[2019-02-05 11:17] LABS: BASO % 0.4 % (0.0-1.0); EOS # 0.2 10^3/uL (0.0-0.50); EOS % 1.8 % (0.0-3.0); HEMOGLOBIN 8.9 g/dl (12.0-15.5); LYMPH # 2.3 10^3/uL (1.5-4.5); LYMPH % 25.5 % (24.0-44.0); MEAN CORPUSCULAR VOLUME 106.3 fl (80.0-96.0); MONO # 0.3 10^3/uL (0.0-0.8); MONO % 3.6 % (0.0-5.0); NEUTROPHILS # 6.2 10^3/uL (1.8-7.7); NEUTROPHILS % 68.3 % (36.0-66.0); PLATELET COUNT, AUTOMATED 291 10^3/uL (150-450); RED BLOOD COUNT 2.54 10^6/uL (4.00-5.40); WHITE BLOOD COUNT 9.1 10^3/uL (4.0-10.0)
[2019-02-05 11:53] LABS: ALBUMIN 3.3 GM/DL (3.2-5.2); BILIRUBIN,DIRECT 0.1 MG/DL (0.0-0.2); BILIRUBIN,TOTAL 0.5 MG/DL (0.2-1.0); TOTAL PROTEIN 6.4 GM/DL (6.4-8.2)
[2019-02-05 12:55] LABS: CALCIUM LEVEL 8.6 MG/DL (8.8-10.2); CREATININE FOR GFR 1.31 MG/DL (0.55-1.30); GLOMERULAR FILTRATION RATE 41.6 (>32); POTASSIUM SERUM 5.7 MEQ/L (3.5-5.1)
[2019-02-05] MEDS ORDERED: PATIROMER SORBITEX CALCIUM 8.4 GM POWDER PACKET (VELTASSA) PO ONE (14:30)
[2019-02-05 15:30] VITALS: BP 139/76
[2019-02-05] MEDS ORDERED: KION15SU PO (15:59)
--- NOTE | 2019-02-06 06:00 | ECGEPIP ---
[facility] - ED Test Date: 2019-02-05 Pat Name: LELE SELF Department: Room: - Gender: Female Case Fitter: HUANG : 1940 Requested By: Virgilio Fischer Order Number: [id number] Reading MD: Virgilio Hernadez Measurements Intervals [place] Rate: 67 P: 46 DE: 159 QRS: 15 QRSD: 84 T: 30 QT: 362 QTc: 384 Interpretive Statements SINUS RHYTHM SIMILAR TO 04/17/18 Electronically Signed on 02-06-2019 6:00:00 EDT by Virgilio Hernadez
== END 2019-02-05 16:18 | disposition home or self-care (01) ==
LOC: M ED 10:17
DX: E87.5 Hyperkalemia (principal); E78.5 Hyperlipidemia, unspecified; N18.3 Chronic kidney disease, stage 3 (moderate); E53.8 Deficiency of other specified B group vitamins; C94.80 Other specified leukemias not having achieved remission; D64.9 Anemia, unspecified; Z88.0 Allergy status to penicillin; Z88.6 Allergy status to analgesic agent; Z79.899 Other long term (current) drug therapy; Z79.4 Long term (current) use of insulin; Z79.52 Long term (current) use of systemic steroids

== ENCOUNTER → 2019-08-04 | Outpatient (CLI) | payer MEDICARE ==
[~2019-08-04] MED LIST changes: +AMLO2.5T3 PO; +CYAN100049 PO; +KION15SU PO; +METF-723 PO; -VITA10002 PO
--- NOTE | 2019-08-04 11:21 | REP ---
Clinical: Multinodular goiter. Technique: Real time babb scale and color evaluation using linear high frequency transducer. Comparison: 04/09/2017. Findings: Thyroid gland is enlarged. Right lobe measures 7.3 x 2.6 x 3.1 cm and includes 6 x 5 x 4 mm stable upper pole complex cyst, 8 x 3 x 7 mm mid/upper pole isoechoic nodule essentially stable, and 41 x 22 x 30 mm heterogeneous isoechoic lower pole nodule (slightly increased from 38 x 23 x 22 mm) . Left lobe measures 4.3 x 1.6 x 1.1 cm and includes 10 x 8.5 x 10 mm isoechoic relatively stable mid pole nodule, 4 x 3 x 2 mm mid pole cyst, 7 x 4 x 5 mm isoechoic stable lower pole nodule, and 2 x 1 x 2 mm stable cyst approaching the isthmus. Impression: Heterogeneous multinodular goiter. The largest heterogeneous nodule in the lower pole the right lobe is slightly increased in size. The remainder of the scattered nodules appear relatively similar to prior examination (allowing for differences in technique). Electronically Signed by Uli Roberson MD 08/04/2019 11:12 A
== END ==
LOC: M RAD 09:31
PROVIDERS: ATTEND Family Medicine
DX: E04.2 Nontoxic multinodular goiter (principal)

== ENCOUNTER → 2019-11-11 | Outpatient (CLI) | payer MEDICARE ==
[2019-11-11 16:02] LABS: HEMATOCRIT 29.1 % (36.0-47.0)
[2019-11-11 16:16] LABS: HEMOGLOBIN A1c 10.6 %
[2019-11-11 16:17] LABS: ALBUMIN 3.3 GM/DL (3.2-5.2); BILIRUBIN,TOTAL 0.7 MG/DL (0.2-1.0); CALCIUM LEVEL 8.6 MG/DL (8.8-10.2); CHOLESTEROL RISK RATIO 2.795 (<5); CREATININE FOR GFR 1.36 MG/DL (0.55-1.30); FREE T4 1.09 NG/DL (0.76-1.46); GLOMERULAR FILTRATION RATE 39.7 (>32); MAGNESIUM LEVEL 1.9 MG/DL (1.8-2.4); POTASSIUM SERUM 4.6 MEQ/L (3.5-5.1); PTH INTACT 78.4 PG/ML (18.5-88.0); THYROID STIMULATING HORMONE 1.18 uIU/ML (0.358-3.740); TOTAL 25(OH) VITAMIN D 20.4 NG/ML (30.0-100.0); TOTAL PROTEIN 6.2 GM/DL (6.4-8.2); URIC ACID 5.6 MG/DL (2.6-6.0)
== END ==
LOC: M WUC 11:45
PROVIDERS: ATTEND Family Medicine
DX: E53.8 Deficiency of other specified B group vitamins (principal); E11.9 Type 2 diabetes mellitus without complications; E55.9 Vitamin D deficiency, unspecified; E79.0 Hyperuricemia without signs of inflammatory arthritis and tophaceous disease; Z79.4 Long term (current) use of insulin; Z79.899 Other long term (current) drug therapy

== ENCOUNTER → 2020-07-01 | Outpatient (REF) | payer MEDICARE ==
[2020-07-01 10:31] LABS: BASO % 0.4 % (0.0-1.0); EOS # 0.5 10^3/uL (0.0-0.5); EOS % 4.3 % (0.0-3.0); HEMATOCRIT 30.2 % (36.0-47.0); HEMOGLOBIN 10.1 g/dl (12.0-15.5); LYMPH # 5.8 10^3/uL (1.5-5.0); LYMPH % 51.6 % (24.0-44.0); MEAN CORPUSCULAR HEMOGLOBIN 40.6 pg (27.0-33.0); MEAN CORPUSCULAR HGB CONC 33.4 g/dl (32.0-36.5); MONO % 8.6 % (0.0-5.0); NEUTROPHILS # 3.9 10^3/uL (1.5-8.5); NEUTROPHILS % 34.7 % (36.0-66.0); PLATELET COUNT, AUTOMATED 308 10^3/uL (150-450); RED BLOOD COUNT 2.49 10^6/uL (4.00-5.40)
[2020-07-01 10:34] LABS: MEAN CORPUSCULAR VOLUME 121.3 fl (80.0-96.0); WHITE BLOOD COUNT 11.3 10^3/uL (4.0-10.0)
[2020-07-01 10:42] LABS: CHOLESTEROL LEVEL 139 MG/DL (<200); CHOLESTEROL RISK RATIO 2.138 (<5); FREE T4 1.32 NG/DL (0.76-1.46); HDL CHOLESTEROL 65 MG/DL (>40); LDL CHOLESTEROL 38 MG/DL (<100); NON-HDL-C 74 MG/DL; TOTAL 25(OH) VITAMIN D 46.8 NG/ML (30.0-100.0); TRIGLYCERIDES LEVEL 180 MG/DL (<150)
[2020-07-01 10:43] LABS: VITAMIN B12 LEVEL > 2000 PG/ML (247-911)
[2020-07-01 10:48] LABS: HEMOGLOBIN A1c 7.9 %
[2020-07-01 11:24] LABS: PLATELET ESTIMATE NORMAL (NORMAL)
== END ==
LOC: M SFHCPLAZ 08:13
PROVIDERS: ATTEND Family Medicine
DX: M35.3 Polymyalgia rheumatica (principal); I12.9 Hypertensive chronic kidney disease with stage 1 through stage 4 chronic kidney disease, or unspecified chronic kidney disease; E78.2 Mixed hyperlipidemia; N18.30 Chronic kidney disease, stage 3 unspecified; E11.9 Type 2 diabetes mellitus without complications; E55.9 Vitamin D deficiency, unspecified

== ENCOUNTER → 2020-10-03 | Outpatient (REF) | payer MEDICARE ==
[~2020-10-03] MED LIST changes: +B-12100010 PO; +LISI10TA22 PO; -LISI10TA4 PO; +VITAMIN D PO
[2020-10-03 13:46] LABS: BASO # 0.1 10^3/uL (0.0-0.2); BASO % 0.6 % (0.0-1.0); EOS # 0.7 10^3/uL (0.0-0.5); HEMATOCRIT 30.1 % (36.0-47.0); HEMOGLOBIN 10.1 g/dl (12.0-15.5); LYMPH # 4.6 10^3/uL (1.5-5.0); LYMPH % 47.3 % (24.0-44.0); MEAN CORPUSCULAR HEMOGLOBIN 41.2 pg (27.0-33.0); MEAN CORPUSCULAR HGB CONC 33.6 g/dl (32.0-36.5); MONO # 0.9 10^3/uL (0.0-0.8); MONO % 9.2 % (0.0-5.0); NEUTROPHILS # 3.5 10^3/uL (1.5-8.5); NEUTROPHILS % 35.7 % (36.0-66.0); PLATELET COUNT, AUTOMATED 319 10^3/uL (150-450); RED BLOOD COUNT 2.45 10^6/uL (4.00-5.40); WHITE BLOOD COUNT 9.8 10^3/uL (4.0-10.0)
[2020-10-03 14:12] LABS: ALBUMIN 3.4 GM/DL (3.2-5.2); CALCIUM LEVEL 9.6 MG/DL (8.8-10.2); CREATININE FOR GFR 1.5 MG/DL (0.55-1.30); GLOMERULAR FILTRATION RATE 35.4 (>32); PHOSPHORUS LEVEL 4.3 MG/DL (2.5-4.9); POTASSIUM SERUM 4.5 MEQ/L (3.5-5.1)
[2020-10-03 14:18] LABS: MEAN CORPUSCULAR VOLUME 122.9 fl (80.0-96.0)
== END ==
LOC: M SFHCPLAZ 09:45
PROVIDERS: ATTEND Family Medicine
DX: C91.Z0 Other lymphoid leukemia not having achieved remission (principal)

== ENCOUNTER → 2020-11-25 | Outpatient (REF) | payer MEDICARE ==
[2020-11-25 13:59] LABS: BASO % 0.3 % (0.0-1.0); EOS # 0.4 10^3/uL (0.0-0.5); HEMATOCRIT 31.5 % (36.0-47.0); HEMOGLOBIN 10.4 g/dl (12.0-15.5); LYMPH # 3.4 10^3/uL (1.5-5.0); LYMPH % 37.8 % (24.0-44.0); MEAN CORPUSCULAR HEMOGLOBIN 40.5 pg (27.0-33.0); MONO # 0.4 10^3/uL (0.0-0.8); MONO % 4.6 % (2.0-8.0); NEUTROPHILS # 4.7 10^3/uL (1.5-8.5); NEUTROPHILS % 53.1 % (36.0-66.0); PLATELET COUNT, AUTOMATED 303 10^3/uL (150-450); RED BLOOD COUNT 2.57 10^6/uL (4.00-5.40); WHITE BLOOD COUNT 8.9 10^3/uL (4.0-10.0)
[2020-11-25 14:02] LABS: MEAN CORPUSCULAR VOLUME 122.6 fl (80.0-96.0)
[2020-11-25 14:14] LABS: HEMOGLOBIN A1c 8.3 %; PLATELET ESTIMATE NORMAL (NORMAL)
[2020-11-25 14:22] LABS: ERYTHROCYTE SEDIMENTATION RATE 56 mm/hr (0-30)
[2020-11-25 14:33] LABS: ALBUMIN 3.6 GM/DL (3.2-5.2); BILIRUBIN,TOTAL 0.4 MG/DL (0.2-1.0); CALCIUM LEVEL 9.5 MG/DL (8.8-10.2); CREATININE FOR GFR 1.26 MG/DL (0.55-1.30); GLOMERULAR FILTRATION RATE 43.3 (>32); POTASSIUM SERUM 4.3 MEQ/L (3.5-5.1); TOTAL PROTEIN 6.4 GM/DL (6.4-8.2)
== END ==
LOC: M SFHCPLAZ 10:34
PROVIDERS: ATTEND Family Medicine
DX: M35.3 Polymyalgia rheumatica (principal); I12.9 Hypertensive chronic kidney disease with stage 1 through stage 4 chronic kidney disease, or unspecified chronic kidney disease; E78.2 Mixed hyperlipidemia; N18.30 Chronic kidney disease, stage 3 unspecified

== ENCOUNTER → 2021-02-07 | Outpatient (REF) | payer MEDICARE ==
[2021-02-07 18:49] LABS: BASO % 0.2 % (0.0-1.0); EOS # 0.1 10^3/uL (0.0-0.5); EOS % 1.3 % (0.0-3.0); HEMATOCRIT 30.6 % (36.0-47.0); LYMPH # 3.5 10^3/uL (1.5-5.0); LYMPH % 39.6 % (24.0-44.0); MEAN CORPUSCULAR HEMOGLOBIN 40.8 pg (27.0-33.0); MEAN CORPUSCULAR HGB CONC 32.7 g/dl (32.0-36.5); MONO # 0.4 10^3/uL (0.0-0.8); MONO % 4.1 % (2.0-8.0); NEUTROPHILS # 4.8 10^3/uL (1.5-8.5); NEUTROPHILS % 54.3 % (36.0-66.0); PLATELET COUNT, AUTOMATED 298 10^3/uL (150-450); RED BLOOD COUNT 2.45 10^6/uL (4.00-5.40); WHITE BLOOD COUNT 8.7 10^3/uL (4.0-10.0)
[2021-02-07 18:53] LABS: MEAN CORPUSCULAR VOLUME 124.9 fl (80.0-96.0)
[2021-02-07 19:11] LABS: HEMOGLOBIN A1c 7.6 %
[2021-02-07 19:20] LABS: PLATELET ESTIMATE NORMAL (NORMAL)
[2021-02-07 19:24] LABS: ALBUMIN 3.7 GM/DL (3.2-5.2); BILIRUBIN,TOTAL 0.4 MG/DL (0.2-1.0); CALCIUM LEVEL 9.2 MG/DL (8.8-10.2); CHOLESTEROL RISK RATIO 2.673 (<5); CREATININE FOR GFR 1.63 MG/DL (0.55-1.30); FREE T4 1.02 NG/DL (0.76-1.46); GLOMERULAR FILTRATION RATE 32.2 (>32); PERCENT SATURATION 84.2 % (13.2-45.0); POTASSIUM SERUM 4.9 MEQ/L (3.5-5.1); PTH INTACT 41.2 PG/ML (18.5-88.0); THYROID STIMULATING HORMONE 0.789 uIU/ML (0.358-3.740); TOTAL 25(OH) VITAMIN D 44.5 NG/ML (30.0-100.0); TOTAL PROTEIN 6.5 GM/DL (6.4-8.2); URIC ACID 6.8 MG/DL (2.6-6.0)
== END ==
LOC: M PLALAB 13:43
PROVIDERS: ATTEND Family Medicine
DX: C91.Z0 Other lymphoid leukemia not having achieved remission (principal); N18.30 Chronic kidney disease, stage 3 unspecified; T80.89XA Other complications following infusion, transfusion and therapeutic injection, initial encounter; E11.9 Type 2 diabetes mellitus without complications; E55.9 Vitamin D deficiency, unspecified; E79.0 Hyperuricemia without signs of inflammatory arthritis and tophaceous disease; E53.8 Deficiency of other specified B group vitamins

== ENCOUNTER → 2021-04-04 | Outpatient (CLI) | payer MEDICARE ==
[2021-04-04 17:18] LABS: BASO % 0.3 % (0.0-1.0); EOS # 0.2 10^3/uL (0.0-0.5); EOS % 1.4 % (0.0-3.0); LYMPH # 5.2 10^3/uL (1.5-5.0); MEAN CORPUSCULAR HEMOGLOBIN 41.5 pg (27.0-33.0); MEAN CORPUSCULAR HGB CONC 33.3 g/dl (32.0-36.5); MONO # 0.7 10^3/uL (0.0-0.8); MONO % 6.4 % (2.0-8.0); NEUTROPHILS # 4.3 10^3/uL (1.5-8.5); NEUTROPHILS % 41.6 % (36.0-66.0); PLATELET COUNT, AUTOMATED 303 10^3/uL (150-450); RED BLOOD COUNT 2.41 10^6/uL (4.00-5.40)
[2021-04-04 17:19] LABS: WHITE BLOOD COUNT 10.4 10^3/uL (4.0-10.0)
[2021-04-04 17:20] LABS: MEAN CORPUSCULAR VOLUME 124.5 fl (80.0-96.0)
[2021-04-04 18:43] LABS: ALBUMIN 3.7 GM/DL (3.2-5.2); ALT/SGPT 44 U/L (12-78); BILIRUBIN,TOTAL 0.4 MG/DL (0.2-1.0); BLOOD UREA NITROGEN 38 MG/DL (7-18); CALCIUM LEVEL 9.6 MG/DL (8.8-10.2); CARBON DIOXIDE LEVEL 29 MEQ/L (21-32); CHLORIDE LEVEL 108 MEQ/L (98-107); CREATININE FOR GFR 1.56 MG/DL (0.55-1.30); FERRITIN 1494 NG/ML (8-252); GLOMERULAR FILTRATION RATE 33.7 (>32); GLUCOSE, FASTING 122 MG/DL (70-100); IRON (FE) 131 UG/DL (50-170); NT-PRO BNP 122 PG/ML (<450); PERCENT SATURATION 62.7 % (13.2-45.0); POTASSIUM SERUM 4.9 MEQ/L (3.5-5.1); SODIUM LEVEL 142 MEQ/L (136-145); TOTAL IRON BINDING CAPACITY 209 UG/DL (250-450); TOTAL PROTEIN 6.4 GM/DL (6.4-8.2)
[2021-04-05 11:42] LABS: CREATININE,RANDOM URINE 48.7 MG/DL; TOTAL PROTEIN,RANDOM URINE 8.8 MG/DL (0.0-12.0)
[2021-04-06 10:53] LABS: ALBUMIN 4.06 GM/DL (3.29-5.55); ALBUMIN % 63.4 % (55.8-66.1); ALPHA-1-GLOBULIN % 4.6 % (2.9-4.9); ALPHA-1-GLOBULINS 0.29 GM/DL (0.17-0.41); ALPHA-2-GLOBULINS 0.67 GM/DL (0.42-0.99); ALPHA-2-GLOBULINS % 10.4 % (7.1-11.8); BETA-1-GLOBULINS 0.35 GM/DL (0.28-0.60); BETA-1-GLOBULINS % 5.4 % (4.7-7.2); BETA-2-GLOBULINS 0.27 GM/DL (0.19-0.55); BETA-2-GLOBULINS % 4.2 % (3.2-6.5); GAMMA GLOBULINS 0.77 GM/DL (0.65-1.58)
== END ==
LOC: M PLALAB 14:37
PROVIDERS: ATTEND Family Medicine
DX: I10 Essential (primary) hypertension (principal); C91.Z0 Other lymphoid leukemia not having achieved remission

== ENCOUNTER → 2021-08-24 | Outpatient (CLI) | payer MEDICARE ==
[2021-08-24 13:16] LABS: BASO % 0.4 % (0.0-1.0); EOS # 0.3 10^3/uL (0.0-0.5); EOS % 2.9 % (0.0-3.0); HEMATOCRIT 31.1 % (36.0-47.0); HEMOGLOBIN 10.6 g/dl (12.0-15.5); LYMPH # 3.8 10^3/uL (1.5-5.0); LYMPH % 35.3 % (24.0-44.0); MEAN CORPUSCULAR HEMOGLOBIN 41.4 pg (27.0-33.0); MEAN CORPUSCULAR HGB CONC 34.1 g/dl (32.0-36.5); MONO # 0.4 10^3/uL (0.0-0.8); NEUTROPHILS # 6.2 10^3/uL (1.5-8.5); NEUTROPHILS % 57.1 % (36.0-66.0); PLATELET COUNT, AUTOMATED 345 10^3/uL (150-450); RED BLOOD COUNT 2.56 10^6/uL (4.00-5.40); WHITE BLOOD COUNT 10.8 10^3/uL (4.0-10.0)
[2021-08-24 13:17] LABS: MEAN CORPUSCULAR VOLUME 121.5 fl (80.0-96.0)
[2021-08-24 14:03] LABS: ALBUMIN 3.8 GM/DL (3.2-5.2); BILIRUBIN,TOTAL 0.5 MG/DL (0.2-1.0); CALCIUM LEVEL 9.9 MG/DL (8.8-10.2); CREATININE FOR GFR 1.29 MG/DL (0.55-1.30); PERCENT SATURATION 60.2 % (13.2-45.0); POTASSIUM SERUM 4.9 MEQ/L (3.5-5.1); TOTAL PROTEIN 6.7 GM/DL (6.4-8.2); URIC ACID 5.9 MG/DL (2.6-6.0)
== END ==
LOC: M PLALAB 11:20
PROVIDERS: ATTEND Family Medicine
DX: T80.89XA Other complications following infusion, transfusion and therapeutic injection, initial encounter (principal); C91.Z0 Other lymphoid leukemia not having achieved remission; I10 Essential (primary) hypertension; Z79.899 Other long term (current) drug therapy

== ENCOUNTER → 2021-11-02 | Outpatient (CLI) | payer MEDICARE ==
[2021-11-02 14:05] LABS: BASO % 0.4 % (0.0-1.0); EOS # 0.5 10^3/uL (0.0-0.5); EOS % 4.5 % (0.0-3.0); HEMATOCRIT 31.2 % (36.0-47.0); HEMOGLOBIN 10.4 g/dl (12.0-15.5); LYMPH % 39.3 % (24.0-44.0); MEAN CORPUSCULAR HEMOGLOBIN 40.5 pg (27.0-33.0); MEAN CORPUSCULAR HGB CONC 33.3 g/dl (32.0-36.5); MONO # 0.5 10^3/uL (0.0-0.8); MONO % 4.8 % (2.0-8.0); NEUTROPHILS # 5.2 10^3/uL (1.5-8.5); NEUTROPHILS % 50.7 % (36.0-66.0); PLATELET COUNT, AUTOMATED 299 10^3/uL (150-450); RED BLOOD COUNT 2.57 10^6/uL (4.00-5.40); WHITE BLOOD COUNT 10.2 10^3/uL (4.0-10.0)
[2021-11-02 14:06] LABS: MEAN CORPUSCULAR VOLUME 121.4 fl (80.0-96.0)
[2021-11-02 14:26] LABS: PLATELET ESTIMATE NORMAL (NORMAL)
[2021-11-02 14:29] LABS: ALBUMIN 3.8 GM/DL (3.2-5.2); CALCIUM LEVEL 9.5 MG/DL (8.8-10.2); CREATININE FOR GFR 1.33 MG/DL (0.55-1.30); GLOMERULAR FILTRATION RATE 40.6 (>32); PERCENT SATURATION 76.6 % (13.2-45.0); PHOSPHORUS LEVEL 3.8 MG/DL (2.5-4.9)
== END ==
LOC: M PLALAB 10:20
PROVIDERS: ATTEND Family Medicine
DX: N18.30 Chronic kidney disease, stage 3 unspecified (principal); T80.89XA Other complications following infusion, transfusion and therapeutic injection, initial encounter

== ENCOUNTER → 2022-04-25 | Outpatient (CLI) | payer MEDICARE ==
[2022-04-25 15:20] LABS: BASO # 0.1 10^3/uL (0.0-0.2); BASO % 0.5 % (0.0-1.0); EOS # 0.4 10^3/uL (0.0-0.5); EOS % 3.2 % (0.0-3.0); HEMATOCRIT 29.1 % (36.0-47.0); HEMOGLOBIN 9.6 g/dl (12.0-15.5); LYMPH % 36.9 % (24.0-44.0); MONO # 0.5 10^3/uL (0.0-0.8); MONO % 4.3 % (2.0-8.0); NEUTROPHILS % 54.8 % (36.0-66.0); PLATELET COUNT, AUTOMATED 278 10^3/uL (150-450); RED BLOOD COUNT 2.34 10^6/uL (4.00-5.40); WHITE BLOOD COUNT 10.9 10^3/uL (4.0-10.0)
[2022-04-25 15:33] LABS: MEAN CORPUSCULAR VOLUME 124.4 fl (80.0-96.0)
[2022-04-25 15:42] LABS: HEMOGLOBIN A1c 7.8 %
[2022-04-25 16:10] LABS: ALBUMIN 3.7 GM/DL (3.2-5.2); BILIRUBIN,TOTAL 0.5 MG/DL (0.2-1.0); CALCIUM LEVEL 9.5 MG/DL (8.8-10.2); CREATININE FOR GFR 1.3 MG/DL (0.55-1.30); GLOMERULAR FILTRATION RATE 41.5 (>32); MAGNESIUM LEVEL 1.7 MG/DL (1.8-2.4); PERCENT SATURATION 65.6 % (13.2-45.0); POTASSIUM SERUM 4.6 MEQ/L (3.5-5.1); TOTAL PROTEIN 6.2 GM/DL (6.4-8.2)
[2022-04-25 16:31] LABS: ANISOCYTOSIS 1+; OVALOCYTES 1+; PLATELET ESTIMATE NORMAL (NORMAL); POIKILOCYTOSIS 1+
[2022-04-25 16:45] LABS: PTH INTACT 30.9 PG/ML (18.5-88.0); TOTAL 25(OH) VITAMIN D 75.8 NG/ML (30.0-100.0)
== END ==
LOC: M PLALAB 09:55
PROVIDERS: ATTEND Family Medicine
DX: E55.9 Vitamin D deficiency, unspecified (principal); C91.Z0 Other lymphoid leukemia not having achieved remission; I10 Essential (primary) hypertension; T80.89XA Other complications following infusion, transfusion and therapeutic injection, initial encounter

== ENCOUNTER → 2022-12-05 | Outpatient (CLI) | payer MEDICARE ==
[2022-12-05 15:55] LABS: BASO % 0.3 % (0.0-1.0); EOS # 0.2 10^3/uL (0.0-0.5); EOS % 2.1 % (0.0-3.0); HEMATOCRIT 29.5 % (36.0-47.0); HEMOGLOBIN 9.9 g/dl (12.0-15.5); LYMPH # 4.3 10^3/uL (1.5-5.0); MEAN CORPUSCULAR HEMOGLOBIN 41.3 pg (27.0-33.0); MEAN CORPUSCULAR HGB CONC 33.6 g/dl (32.0-36.5); MONO # 0.5 10^3/uL (0.0-0.8); MONO % 4.9 % (2.0-8.0); NEUTROPHILS # 5.2 10^3/uL (1.5-8.5); NEUTROPHILS % 50.5 % (36.0-66.0); PLATELET COUNT, AUTOMATED 285 10^3/uL (150-450); WHITE BLOOD COUNT 10.3 10^3/uL (4.0-10.0)
[2022-12-05 15:57] LABS: MEAN CORPUSCULAR VOLUME 122.9 fl (80.0-96.0)
[2022-12-05 16:31] LABS: PLATELET ESTIMATE NORMAL (NORMAL)
[2022-12-05 18:54] LABS: ALBUMIN 3.6 G/DL (3.2-5.2); BILIRUBIN,TOTAL 0.5 MG/DL (0.3-1.2); CALCIUM LEVEL 9.3 MG/DL (8.3-10.6); CHOLESTEROL RISK RATIO 2.66 (<5); CREATININE FOR GFR 1.12 MG/DL (0.55-1.30); FREE T4 1.18 NG/DL (0.89-1.76); GLOMERULAR FILTRATION RATE 49.3 (>32); HDL CHOLESTEROL 46.9 MG/DL (>40); LDL CHOLESTEROL 44.9 MG/DL (<100); NON-HDL-C 78.1 MG/DL; POTASSIUM SERUM 4.8 MMOL/L (3.5-5.1); THYROID STIMULATING HORMONE 1.324 uIU/ML (0.55-4.78); TOTAL PROTEIN 5.8 G/DL (5.7-8.2)
== END ==
LOC: M PLALAB 13:46
PROVIDERS: ATTEND Family Medicine
DX: T80.89XA Other complications following infusion, transfusion and therapeutic injection, initial encounter (principal); I10 Essential (primary) hypertension; E78.2 Mixed hyperlipidemia

== ENCOUNTER → 2023-04-08 | Outpatient (CLI) | payer MEDICARE ==
[2023-04-08 13:12] LABS: ALBUMIN 3.8 G/DL (3.2-5.2); BILIRUBIN,TOTAL 0.5 MG/DL (0.3-1.2); CALCIUM LEVEL 8.9 MG/DL (8.3-10.6); CREATININE FOR GFR 0.97 MG/DL (0.55-1.30); GLOMERULAR FILTRATION RATE 58.1 (>32); PERCENT SATURATION 62.5 % (13.2-45.0); POTASSIUM SERUM 4.3 MMOL/L (3.5-5.1)
[2023-04-08 13:13] LABS: FREE T4 1.17 NG/DL (0.89-1.76); THYROID STIMULATING HORMONE 1.613 uIU/ML (0.55-4.78)
[2023-04-08 13:14] LABS: FERRITIN 1211.9 NG/ML (7.3-270.7)
[2023-04-08 13:19] LABS: HEMOGLOBIN A1c 7.9 % (4.0-6.0)
[2023-04-09 17:07] LABS: IMMUNOTYPING SERUM IGA SO 106 mg/dL (64-422); IMMUNOTYPING SERUM IGM SO 163 mg/dL (26-217)
== END ==
LOC: M WUC 10:34
PROVIDERS: ATTEND Family Medicine
DX: E11.9 Type 2 diabetes mellitus without complications (principal); T80.89XA Other complications following infusion, transfusion and therapeutic injection, initial encounter; C91.Z0 Other lymphoid leukemia not having achieved remission

== ENCOUNTER → 2023-04-11 | Outpatient (REF) | payer MEDICARE | LOC: M SFHCPLAZ 10:48 | PROVIDERS: ATTEND Family Medicine | DX: E11.9 Type 2 diabetes mellitus without complications (principal); C91.Z0 Other lymphoid leukemia not having achieved remission; I10 Essential (primary) hypertension; E79.0 Hyperuricemia without signs of inflammatory arthritis and tophaceous disease; T80.89XA Other complications following infusion, transfusion and therapeutic injection, initial encounter; E78.2 Mixed hyperlipidemia ==

== ENCOUNTER → 2023-07-12 | Outpatient (CLI) | payer MEDICARE | LOC: M PLAIMG 10:22 | PROVIDERS: ATTEND Family Medicine | DX: M47.816 Spondylosis without myelopathy or radiculopathy, lumbar region (principal) ==

== ENCOUNTER 2023-09-18 14:50 | Inpatient (IN) | payer MEDICARE ==
[~2023-09-18] VITALS: Ht 165.1 cm; Wt 63.2 kg
[2023-09-18] MEDS ORDERED: ISOVUE-370 76% 100ML VIAL As Ordered ONE (15:11)
[2023-09-18 15:24] LABS: BASO # 0.1 10^3/uL (0.0-0.2); BASO % 0.3 % (0.0-1.0); EOS # 0.1 10^3/uL (0.0-0.5); EOS % 0.4 % (0.0-3.0); HEMATOCRIT 31.2 % (36.0-47.0); HEMOGLOBIN 10.7 g/dl (12.0-15.5); LYMPH # 3.5 10^3/uL (1.5-5.0); LYMPH % 23.7 % (24.0-44.0); MEAN CORPUSCULAR HEMOGLOBIN 40.7 pg (27.0-33.0); MEAN CORPUSCULAR HGB CONC 34.3 g/dl (32.0-36.5); MONO # 1.1 10^3/uL (0.0-0.8); MONO % 7.7 % (2.0-8.0); NEUTROPHILS % 67.5 % (36.0-66.0); PLATELET COUNT, AUTOMATED 251 10^3/uL (150-450); RED BLOOD COUNT 2.63 10^6/uL (4.00-5.40); WHITE BLOOD COUNT 14.8 10^3/uL (4.0-10.0)
[2023-09-18 15:53] LABS: CREATININE FOR GFR 0.98 MG/DL (0.55-1.30); GLOMERULAR FILTRATION RATE 57.4 (>32); POTASSIUM SERUM 4.5 MMOL/L (3.5-5.1)
[2023-09-18 15:56] LABS: MEAN CORPUSCULAR VOLUME 118.6 fl (80.0-96.0)
[2023-09-18 15:58] LABS: INR 1.15; PARTIAL THROMBOPLASTIN TIME 32.4 SECONDS (24.8-34.2); PROTHROMBIN TIME 14.3 SECONDS (12.5-14.5)
[2023-09-18 16:01] LABS: PLATELET ESTIMATE NORMAL (NORMAL); RSV AMPLIFICATION NEGATIVE (NEGATIVE)
[2023-09-18] MEDS ORDERED: TOUJ1.2I (17:44)
[2023-09-18] MEDS ORDERED: PRED5TA PO (17:44)
[2023-09-18] MEDS ORDERED: THER2000 PO (17:49)
[2023-09-18] MEDS ORDERED: dexAMETHasone 20MG/5ML VIAL IV ONE (18:55)
[2023-09-18] MEDS ORDERED: HOME MED LIST COMPLETE! XX SCH (20:20)
[2023-09-18] MEDS ORDERED: DEXTROSE 50% 50ML SYRINGE IV PRN (22:05)
[2023-09-18] MEDS ORDERED: GLUCOSE 4GM CHEW TABLET PO PRN (22:05)
[2023-09-18] MEDS ORDERED: GLUCAGON INJ 1MG VIAL SC PRN (22:05)
[2023-09-18] MEDS ORDERED: NS 1,000 ML IV SCH (22:05)
[2023-09-18] MEDS: INSULIN LISPRO (NovoLOG) PER UNIT SC SCH (23:16)
[2023-09-19] MEDS: INSULIN LISPRO (NovoLOG) PER UNIT SC SCH (06:00)
[2023-09-19 06:11] VITALS: BP 139/65; TEMP 98.4; O2SAT 97
[2023-09-19 06:15] VITALS: BP 157/73; O2SAT 98
[2023-09-19 07:00] VITALS: BP 163/72; O2SAT 99
[2023-09-19 08:00] VITALS: BP 165/72; TEMP 98.3; O2SAT 100
[2023-09-19 09:00] VITALS: BP 167/70; O2SAT 99
[2023-09-19] MEDS ORDERED: HEPARIN SOD (PORCINE) 5000UNITS/ML 1ML VIAL/SYRINGE SQ SCH (09:00)
[2023-09-19] MEDS ORDERED: ACETAMINOPHEN TAB 650MG DOSE (2X325MG) PO PRN (09:30)
[2023-09-19] MEDS ORDERED: SCOPOLAMINE 1MG TRANSDERMAL PATCH TOP PRN (09:30)
[2023-09-19] MEDS ORDERED: BISACODYL 10MG SUPP PR PRN (09:30)
[2023-09-19] MEDS ORDERED: ONDANSETRON 4MG 2ML VIAL IV PRN (09:30)
[2023-09-19] MEDS ORDERED: LORazepam 1 MG TAB PO PRN (09:30)
[2023-09-19] MEDS ORDERED: ONDANSETRON 4MG ORAL DISINTEGRATING TAB PO PRN (09:30)
[2023-09-19] MEDS ORDERED: FLEET ENEMA PR PRN (09:30)
[2023-09-19] MEDS ORDERED: ACETAMINOPHEN 650MG SUPP PR PRN (09:30)
[2023-09-19] MEDS ORDERED: FENTANYL REMOVAL DOCUMENTATION MISC XX SCH (16:55)
[2023-09-19] MEDS ORDERED: fentaNYL 50 MCG/HR PATCH TOP ONE (17:30)
[2023-09-20] MEDS: HYOSCYAMINE SULFATE 0.125 MG SUBL TABLET PO PRN ×4 (09:07→23:26)
[2023-09-21] MEDS: MORPHINE 10MG/0.5ML ORAL CONCENTRATE SOLUTION U/D SL PRN ×2 (04:23→22:23)
[2023-09-21] MEDS: HYOSCYAMINE SULFATE 0.125 MG SUBL TABLET PO PRN (04:24)
[2023-09-21] MEDS: ATROPINE SULFATE 1% OPHTH SOLN 2ML BTL SL PRN ×4 (04:56→21:18)
[2023-09-21] MEDS: LORazepam 2 MG/ML 1ML VIAL IV PRN ×5 (06:36→21:24)
[2023-09-21] MEDS: MORPHINE 2 MG/ML 1ML VIAL IV PRN ×5 (06:36→21:26)
[2023-09-22] MEDS: MORPHINE 2 MG/ML 1ML VIAL IV PRN ×5 (11:51→21:36)
[2023-09-22] MEDS: LORazepam 2 MG/ML 1ML VIAL IV PRN ×5 (11:52→21:36)
[2023-09-22] MEDS: ATROPINE SULFATE 1% OPHTH SOLN 2ML BTL SL PRN (16:46)
[2023-09-22] MEDS: MORPHINE 10MG/0.5ML ORAL CONCENTRATE SOLUTION U/D SL PRN (18:05)
[2023-09-23] MEDS: MORPHINE 10MG/0.5ML ORAL CONCENTRATE SOLUTION U/D SL PRN ×8 (00:22→21:18)
[2023-09-23] MEDS: LORazepam 2 MG/ML 1ML VIAL IV PRN ×2 (01:11→04:23)
[2023-09-23] MEDS: MORPHINE 2 MG/ML 1ML VIAL IV PRN ×2 (01:11→04:23)
[2023-09-24] MEDS: MORPHINE 10MG/0.5ML ORAL CONCENTRATE SOLUTION U/D SL PRN (00:48)
== END 2023-09-24 10:20 | disposition expired | DRG 64 ==
LOC: M ED 14:50 → EDBD 14:50 → M ED INP 22:02 → M ICU 09-19 06:10 → M MSPAV 09-19 16:33
PROVIDERS: ADMIT Internal Medicine; ATTEND Internal Medicine
DX: I63.312 Cerebral infarction due to thrombosis of left middle cerebral artery (principal); G93.6 Cerebral edema; G93.5 Compression of brain; G93.41 Metabolic encephalopathy; N18.4 Chronic kidney disease, stage 4 (severe); G81.91 Hemiplegia, unspecified affecting right dominant side; E11.22 Type 2 diabetes mellitus with diabetic chronic kidney disease; I12.9 Hypertensive chronic kidney disease with stage 1 through stage 4 chronic kidney disease, or unspecified chronic kidney disease; E78.00 Pure hypercholesterolemia, unspecified; R57.1 Hypovolemic shock; Z51.5 Encounter for palliative care; Z66 Do not resuscitate; Z79.899 Other long term (current) drug therapy; Z79.84 Long term (current) use of oral hypoglycemic drugs; Z79.52 Long term (current) use of systemic steroids; Z88.0 Allergy status to penicillin; Z88.6 Allergy status to analgesic agent